=== PATIENT | male | born 1950 | race Caucasian/White ===

== ENCOUNTER → 2018-01-29 | Outpatient (CLI) | payer MEDICARE, BC | END | disposition home or self-care (01) | LOC: PETSC 12:41 | DX: C15.5 Malignant neoplasm of lower third of esophagus (principal); E04.1 Nontoxic single thyroid nodule; J39.8 Other specified diseases of upper respiratory tract; Z98.890 Other specified postprocedural states | CPT/HCPCS: 78815; A9552 ==

== ENCOUNTER 2018-02-11 08:21 | Outpatient (CLI) | payer MEDICARE, BC ==
[2018-02-11 08:39] LABS: ADD MAN DIFF? NO
[2018-02-11 08:42] LABS: BASO % 1 % (0-3); EOS # 0.1 x10^3/uL (0.0-0.7); EOS % 4 % (0-3); HEMATOCRIT 38.5 % (39.0-53.0); HEMOGLOBIN 12.9 g/dL (13.0-17.5); LYMPH # 0.4 x10^3/uL (1.0-4.8); LYMPH % 10 % (24-48); MEAN CORPUSCULAR HEMOGLOBIN 29 pg (25-35); MEAN CORPUSCULAR HGB CONC 34 g/dL (31-37); MEAN CORPUSCULAR VOLUME 87 fL (79-100); MONO # 0.4 x10^3/uL (0.0-1.1); MONO % 10 % (0-9); NEUT # 2.6 x10^3uL (1.8-7.7); NEUT % 75 % (31-73); PLATELET COUNT 196 x10^3/uL (140-400); RED BLOOD COUNT 4.41 x10^6/uL (4.30-5.70); RED CELL DISTRIBUTION WIDTH 14.9 % (11.5-14.5); WHITE BLOOD COUNT 3.5 x10^3/uL (4.0-11.0)
[2018-02-11 09:05] LABS: PROTHROMBIN TIME PATIENT 13.1 SEC (11.7-14.0)
[2018-02-11] MEDS ORDERED: LIDOCAINE 1%/EPI 1:100,000 20 ML VIAL. (09:34)
[2018-02-11] MEDS ORDERED: fentaNYL PF VIAL 100 MCG/2 ML VIAL (09:50)
[2018-02-11] MEDS ORDERED: MIDAZOLAM HCL/PF 2 MG/2 ML VIAL. (09:50)
[2018-02-11] MEDS: LIDOCAINE 1%/EPI 1:100,000 20 ML VIAL. IJ (10:00)
[2018-02-11] MEDS: MIDAZOLAM HCL/PF 2 MG/2 ML VIAL. IV (10:00)
[2018-02-11] MEDS: fentaNYL PF VIAL 100 MCG/2 ML VIAL IV (10:00)
== END 2018-02-11 12:00 | disposition home or self-care (01) ==
LOC: INTRAD 08:21
DX: C15.5 Malignant neoplasm of lower third of esophagus (principal); C77.1 Secondary and unspecified malignant neoplasm of intrathoracic lymph nodes; C79.51 Secondary malignant neoplasm of bone; C78.00 Secondary malignant neoplasm of unspecified lung; E04.1 Nontoxic single thyroid nodule; E11.40 Type 2 diabetes mellitus with diabetic neuropathy, unspecified; G62.9 Polyneuropathy, unspecified; E78.00 Pure hypercholesterolemia, unspecified; I48.91 Unspecified atrial fibrillation; K21.9 Gastro-esophageal reflux disease without esophagitis; Z98.890 Other specified postprocedural states; Z79.82 Long term (current) use of aspirin; Z79.899 Other long term (current) drug therapy; Z79.84 Long term (current) use of oral hypoglycemic drugs; Z92.21 Personal history of antineoplastic chemotherapy; Z92.3 Personal history of irradiation
CPT/HCPCS: 36415; 36561; 76937; 77001; 85025; 85610; 99152; 99153; C1751; C1769; C1892; J0690; J2250; J3010; J3490

== ENCOUNTER → 2018-04-09 | Outpatient (CLI) | payer MEDICARE, BC ==
[2018-02-11 11:47] VITALS: BP 108/68
[~2018-04-09] MED LIST: ASCO10002 PO; ASPI81TA50 PO; CHOL10003 PO; CINN500C2 PO; HYDR-971 PO; METF10007 PO; MULT-404 PO; OMEG1CAP38 PO; PANT20TA2 PO; PRAV20TA2 PO; UBID200C PO; [UNRECOGNIZED DRUG - OTHER] PO
--- NOTE | 2018-04-09 11:38 | RAD ---
FDG tumor localization scan, PET/CT, 04/09/2018: History: Esophageal cancer with metastases, follow-up Imaging was performed following IV injection of 14.8 mCi of 18 F-FDG. The noncontrast CT component was performed for attenuation correction and anatomic localization purposes rather than for primary diagnosis. The patient's blood glucose level at the time of injection was 108 MG/DL. Comparison is made to a study from 01/29/2018. Numerous hypermetabolic foci seen in the mediastinum and bre on the previous study have largely resolved. The CT component demonstrates interval decrease in size of mediastinal lymph nodes, best seen in the right paratracheal region where a 22 mm node seen on the previous study now measures 9 mm. There is only a single tiny residual focus of mildly increased FDG uptake in the subcarinal region with a maximum SUV of 3.1. Bilateral pulmonary masses and patchy infiltrates seen on the previous study have also regressed in size and the degree of FDG uptake. The previously seen lung lesions were markedly hypermetabolic. There is a currently a residual 3.3 cm hypermetabolic focus in the left lung base posteriorly which demonstrates a maximum SUV of 3.7. This process has decreased in size and intensity. Its maximum SUV on the previous study was 7.9. There is only minimal residual low level FDG uptake related to several other residual right lung opacities. These opacities have decreased in size. There are new foci of increased FDG uptake along the margins of the left side of the mandible as well as in the adjacent musculature. There are streak artifacts in this region related to dental fillings. The pattern raises the possibility of an inflammatory or infectious process. Normal GI tract and urinary tract activity is present in the abdomen and pelvis. No hypermetabolic abdominal process is seen. Markedly increased activity seen within the left side of the sacrum and left iliac bone along the posterior rim of the left acetabulum on the previous study have abated. There was also increased activity within the right pedicle and transverse process at L5 which has resolved. Incidental CT findings include the presence of a unchanged right thyroid mass. Changes of a previous esophageal resection with elevation of the stomach into the chest are again noted. There is mild pleural thickening and trace pleural fluid posteriorly in the lower chest, more so on the left. There is moderate nonspecific prostatic enlargement. IMPRESSION: 1. Nearly complete resolution of the hypermetabolic mediastinal and hilar adenopathy evident on 01/29/2018, suggesting a favorable response to therapy. 2. Bilateral pulmonary lesions have also regressed with decrease in the degree of FDG uptake. This probably represented metastatic disease, although an inflammatory or infectious component cannot be excluded. 3. Presumed bony metastases in the pelvis, sacrum and L5 have also regressed. 4. New hypermetabolic foci along the margins of the left side of the mandible raising possibility of an inflammatory process, possibly of odontogenic origin. Clinical correlation is suggested.
== END | disposition home or self-care (01) ==
LOC: PETSC 08:24
PROVIDERS: ATTEND Internal Medicine Hematology & Oncology
DX: C15.5 Malignant neoplasm of lower third of esophagus (principal); J98.4 Other disorders of lung; E11.9 Type 2 diabetes mellitus without complications; E78.00 Pure hypercholesterolemia, unspecified; K21.9 Gastro-esophageal reflux disease without esophagitis; Z79.899 Other long term (current) drug therapy; Z92.3 Personal history of irradiation; Z92.21 Personal history of antineoplastic chemotherapy
CPT/HCPCS: 78815; A9552

== ENCOUNTER 2018-05-13 11:21 | Inpatient (IN) | payer MEDICARE, BC ==
[~2018-05-13] VITALS: Ht 167.6 cm; Wt 67.2 kg
[2018-05-13] VITALS (9 sets, daily range): BP systolic 73–101; BP diastolic 57–69
[2018-05-13] MEDS ORDERED: dilTIAZem IV PUSH 25 MG/5 ML VIAL IVP ONE (11:45)
[2018-05-13] MEDS ORDERED: dilTIAZem INJ 125 MG in IV DEXTROSE 5% 100ML 100 ML IV ONE (11:45)
--- NOTE | 2018-05-13 11:46 | PHYS DOC ---
Adult General Chief Complaint Chief Complaint: tachycardia, A. fib HPI HPI 67-year-old male with history of A. fib presenting the emergency department today with tachycardia after being seen in clinic and being transferred by EMS for significant tachycardia A. fib with RVR. Patient is otherwise denying chest pain or shortness of breath. He feels generally mildly weak. He currently is undergoing chemotherapy for lung cancer and this is why he was in clinic today as to receive his chemotherapy at [facility]. He denies any pain. Past medical history: Lung cancer currently undergoing chemotherapy, hyperlipidemia, diabetes mellitus Surgical history: Straight knee replacement surgery, history of skin grafting, history of esophageal reconstruction surgery and partial esophagectomy Social history:Denies smoking, denies IV drug use or alcohol use. No known drug allergies Review of systems is negative for chest pain abdominal pain nausea vomiting. Reports feeling mildly clammy earlier but feels better now. All other review of systems is negative unless otherwise noted in history of present illness. ED course: 67-year-old male presenting the emergency department today with A. fib with RVR. Diltiazem ordered and given here in the emergency room. She shows anemia. Chemistry panel unremarkable. Troponin negative. Chest x-ray shows effusion with congestive changes likely secondary to his A. fib with RVR. We will admit the patient to the cardiovascular care unit consult cardiology and admitted the patient to Dr. Hardin for further evaluation treatment and care. Review of Systems Review of Systems SEE ABOVE. Current Medications Current Medications Current Medications Medications (Trade) Dose Ordered Sig/Darryl Start Time Stop Time Status Last Admin Dose Admin Digoxin (Lanoxin) 500 mcg 1X ONCE 05/13/18 14:45 05/13/18 14:46 DC 05/13/18 14:27 500 MCG Diltiazem HCl (Cardizem) 15 mg 1X ONCE 05/13/18 11:45 05/13/18 11:46 DC 05/13/18 12:02 15 MG Diltiazem HCl 125 mg/Dextrose 125 ml @ 5 mls/hr 1X ONCE 05/13/18 11:45 05/14/18 12:44 05/13/18 12:06 5 MLS/HR Morphine Sulfate (Morphine Sulfate) 2 mg PRN Q2HR PRN 05/13/18 12:45 05/14/18 12:44 Ondansetron HCl (Zofran) 4 mg PRN Q8HRS PRN 05/13/18 12:45 05/14/18 12:44 Sodium Chloride 1,000 ml @ 75 mls/hr [id number] 05/13/18 12:32 05/13/18 16:31 DC Allergies Allergies Allergies Coded Allergies Type Severity Reaction Last Updated Verified No Known Drug Allergies 02/11/18 No Physical Exam Physical Exam SEE ABOVE Constitutional: Well developed, well nourished, no acute distress, non-toxic appearance. [] HENT: Normocephalic, atraumatic, bilateral external ears normal, oropharynx moist, no oral exudates, nose normal. Eyes: PERRLA, EOMI, conjunctiva normal, no discharge. [] Neck: Normal range of motion, no tenderness, supple, no stridor. [] Cardiovascular:tachy hr with irregular rhythm Lungs & Thorax: Bilateral breath sounds clear to auscultation Abdomen: Bowel sounds normal, soft, no tenderness, no masses, no pulsatile masses. [] Skin: Warm, dry, no erythema, no rash. Back: No tenderness, no CVA tenderness. [] Extremities: No tenderness, no cyanosis, no clubbing, ROM intact, no edema. Neurologic: Alert and oriented X 3, normal motor function, normal sensory function, no focal deficits noted. [] Psychologic: Affect normal, judgement normal, mood normal. Current Patient Data Vital Signs Vital Signs Date Time Temp Pulse Resp B/P (MAP) Pulse Ox O2 Delivery O2 Flow Rate FiO2 05/13/18 14:30 144 11 99/53 (68) 97 Room Air 05/13/18 11:21 97.9 97.9 Lab Values Laboratory Tests Test 05/13/18 11:45 White Blood Count 4.1 x10^3/uL (4.0-11.0) Red Blood Count 3.22 x10^6/uL (4.30-5.70) L Hemoglobin 10.9 g/dL (13.0-17.5) L Hematocrit 31.9 % (39.0-53.0) L Mean Corpuscular Volume 99 fL (79-100) Mean Corpuscular Hemoglobin 34 pg (25-35) Mean Corpuscular Hemoglobin Concent 34 g/dL (31-37) Red Cell Distribution Width 20.7 % (11.5-14.5) H Platelet Count 196 x10^3/uL (140-400) Neutrophils (%) (Auto) 67 % (31-73) Lymphocytes (%) (Auto) 7 % (24-48) L Monocytes (%) (Auto) 21 % (0-9) H Eosinophils (%) (Auto) 4 % (0-3) H Basophils (%) (Auto) 1 % (0-3) Neutrophils # (Auto) 2.8 x10^3uL (1.8-7.7) Lymphocytes # (Auto) 0.3 x10^3/uL (1.0-4.8) L Monocytes # (Auto) 0.9 x10^3/uL (0.0-1.1) Eosinophils # (Auto) 0.2 x10^3/uL (0.0-0.7) Basophils # (Auto) 0.0 x10^3/uL (0.0-0.2) Segmented Neutrophils % 77 % (35-66) H Band Neutrophils % 1 % (0-9) Lymphocytes % 7 % (24-48) L Monocytes % 12 % (0-10) H Eosinophils % 2 % (0-5) Basophils % 1 % (0-3) Platelet Estimate Adequate (ADEQUATE) Anisocytosis Mod Prothrombin Time 14.2 SEC (11.7-14.0) H Prothrombin Time INR 1.2 (0.8-1.1) H PTT 33 SEC (24-38) Sodium Level 144 mmol/L (136-145) Potassium Level 4.1 mmol/L (3.5-5.1) Chloride Level 107 mmol/L (98-107) Carbon Dioxide Level 25 mmol/L (21-32) Anion Gap 12 (6-14) Blood Urea Nitrogen 10 mg/dL (8-26) Creatinine 0.8 mg/dL (0.7-1.3) Estimated GFR (Cockcroft-Gault) 95.8 Glucose Level 84 mg/dL (70-99) Calcium Level 8.8 mg/dL (8.5-10.1) Total Bilirubin 0.3 mg/dL (0.2-1.0) Direct Bilirubin 0.1 mg/dL (0.0-0.2) Aspartate Amino Transferase (AST) 19 U/L (15-37) Alanine Aminotransferase (ALT) 16 U/L (16-63) Alkaline Phosphatase 103 U/L (46-116) Troponin I Quantitative < 0.017 ng/mL (0.000-0.055) XL-Csy-B-Type Natriuretic Peptide 662 pg/mL (0-124) H Total Protein 6.6 g/dL (6.4-8.2) Albumin 2.9 g/dL (3.4-5.0) L Lipase 72 U/L (73-393) L Thyroid Stimulating Hormone (TSH) 0.987 uIU/mL (0.358-3.74) Laboratory Tests 05/13/18 11:45 Laboratory Tests 05/13/18 11:45 EKG EKG [] Radiology/Procedures Radiology/Procedures [] Course & Med Decision Making Course & Med Decision Making Pertinent Labs and Imaging studies reviewed. (See chart for details) [] Dragon Disclaimer Dragon Disclaimer This electronic medical record was generated, in whole or in part, using a voice recognition dictation system. Departure Departure Impression: Primary Impression: Atrial fibrillation with RVR Disposition: ADMITTED INPATIENT Admitting Physician: Tequila Hardin Condition: STABLE Referrals: HIWOT PTAEL MD (PCP) OLIVER MELCHOR MD May 13, 2018 11:46
--- NOTE | 2018-05-13 12:07 | RAD ---
Examination: Portable chest HISTORY: History of chest pain COMPARISON: None available FINDINGS: Low lung volumes and technique accentuates heart size and pulmonary vascularity. Right-sided Port-A-Cath is identified with the tip projecting in the distal SVC region. Mild elevation of the right hemidiaphragm. There is blunting of the right CP angle could be atelectasis or infiltrate and small right pleural effusion. There is mild prominent appearing bilateral interstitial lung markings could be interstitial infiltrates or mild congestive changes. IMPRESSION: 1. Mild congestive changes or interstitial infiltrates in the bilateral lungs. 2. Right lung base airspace opacities likely atelectasis or infiltrate and small right pleural effusion. Electronically signed by: Álvaro Garcia MD (05/13/2018 12:03 PM) [id number]
[2018-05-13 12:16] LABS: CALCIUM 8.8 mg/dL (8.5-10.1); CREATININE 0.8 mg/dL (0.7-1.3); GFR 95.8; POTASSIUM 4.1 mmol/L (3.5-5.1)
[2018-05-13 12:19] LABS: BASO % 1 % (0-3); EOS # 0.2 x10^3/uL (0.0-0.7); EOS % 4 % (0-3); HEMATOCRIT 31.9 % (39.0-53.0); HEMOGLOBIN 10.9 g/dL (13.0-17.5); LYMPH # 0.3 x10^3/uL (1.0-4.8); LYMPH % 7 % (24-48); MEAN CORPUSCULAR HEMOGLOBIN 34 pg (25-35); MEAN CORPUSCULAR HGB CONC 34 g/dL (31-37); MEAN CORPUSCULAR VOLUME 99 fL (79-100); MONO # 0.9 x10^3/uL (0.0-1.1); MONO % 21 % (0-9); NEUT # 2.8 x10^3uL (1.8-7.7); NEUT % 67 % (31-73); PLATELET COUNT 196 x10^3/uL (140-400); RED BLOOD COUNT 3.22 x10^6/uL (4.30-5.70); RED CELL DISTRIBUTION WIDTH 20.7 % (11.5-14.5); WHITE BLOOD COUNT 4.1 x10^3/uL (4.0-11.0)
[2018-05-13 12:22] LABS: ALBUMIN 2.9 g/dL (3.4-5.0); DIRECT BILIRUBIN 0.1 mg/dL (0.0-0.2); TOTAL BILIRUBIN 0.3 mg/dL (0.2-1.0); TOTAL PROTEIN 6.6 g/dL (6.4-8.2)
[2018-05-13] MEDS ORDERED: IV NORMAL SALINE 1000ML BAG 1,000 ML IV SCH (12:32)
[2018-05-13 12:33] LABS: PROTHROMBIN TIME PATIENT 14.2 SEC (11.7-14.0)
[2018-05-13] MEDS ORDERED: ONDANSETRON PF 4 MG/2 ML VIAL. IV PRN (12:45)
[2018-05-13] MEDS ORDERED: MORPHINE SULFATE 2 MG/ML VIAL. IV PRN (12:45)
--- NOTE | 2018-05-13 13:03 | EKG ---
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
--- NOTE | 2018-05-13 13:34 | PDOC2 ---
MANOLO PARK CHEMIST PHARMACEUTICAL 05/13/18 1334: CARDIAC CONSULT DATE OF CONSULT Date of Consult DATE: 05/13/18 TIME: 13:28 REASON FOR CONSULT Reason for Consult: AFIB with RVR REFERRING PHYSICIAN Referring Physician: Dr. Boggs SOURCE Source: Chart review, Patient HISTORY OF PRESENT ILLNESS HISTORY OF PRESENT ILLNESS This is a 67 yo male who presented secondary to AFIB with RVR. Is presently undergoing treatment for Lung CA. Was initially diagnosed with esophageal CA in December of 2016 and underwent extensive esophageal surgery in May of 2017. Immediately prior to this, underwent cardiac workup including EKG, echo, and stress test. Had brief episode of AFIB post-operatively and reports being discharged on a "pill" for a month. Reports this medication was never refilled. In February of this year, was diagnosed with bone and lung CA for which he is currently receiving chemotherapy for. Additionally underwent radiation for bone CA. Was at [facility] for chemotherapy today when HR was noted to be significantly elevated. Was transferred via EMS for further evaluation and treatment. Patient presently asymptomatic. Did have a period this morning while getting ready that his heart felt like it was beating fast and felt diaphoretic, but this subsided quickly. Denies any dizziness, SOA, VO, orthopnea, or nausea/vomiting. Noted to be in AFIB with RVR upon arrival. Cardizem bolus of 15mg and subsequent gtt was initiated. Was running at 0mg/hr, but had to be decreased to 5mg/hr due to BP in the low 80's. HR presently ranging from 130-160 on Cardizem at 5mg/hr. Patient is asymptomatic. PAST MEDICAL HISTORY Cardiovascular: AFIB, HTN (history; previously on lisinopril. No issues since significant wt loss), Hyperlipidemia Pulmonary: Other (lung CA) CENTRAL NERVOUS SYSTEM: Periperal neuropathy GI: GERD, Other (esophageal CA) Heme/Onc: Cancer (esophageal, lung, bone) Hepatobiliary: No pertinent hx Psych: No pertinent hx Musculoskeletal: low back pain (from CA) Rheumatologic: No pertinent hx Infectious disease: No pertinent hx ENT: No pertinent hx Renal/: No pertinent hx Endocrine: Diabetes Dermatology: No pertinent hx PAST SURGICAL HISTORY Past Surgical History: Tonsillectomy, Other (right knee surgery, skin grafts seconday to roldan, partial esophagectomy and reconstruction surgery, thyroid nodule removal) FAMILY HISTORY Family History: Diabetes, Heart Disease SOCIAL HISTORY Smoke: No ALCOHOL: occassional Drugs: None Lives: with Family CURRENT MEDICATIONS CURRENT MEDICATIONS Current Medications Medications (Trade) Dose Ordered Sig/Darryl Route PRN Reason Start Time Stop Time Status Last Admin Dose Admin Diltiazem HCl (Cardizem) 15 mg 1X ONCE IVP 05/13/18 11:45 05/13/18 11:46 DC 05/13/18 12:02 Diltiazem HCl 125 mg/Dextrose 125 ml @ 5 mls/hr 1X ONCE IV 05/13/18 11:45 05/14/18 12:44 05/13/18 12:06 ALLERGIES ALLERGIES: Coded Allergies: No Known Drug Allergies (Unverified , 02/11/18) ROS Review of System 14 point ROS conducted with pertinent positives noted above in HPI. PHYSICAL EXAM General: Alert, Oriented X3, Cooperative, No acute distress HEENT: Atraumatic, Mucous membr. moist/pink Lungs: Clear to auscultation, Normal air movement Heart: Normal S1, Normal S2, Other (tele: IRRR; AFIB with RVR- rate 130-60) Abdomen: Soft, No tenderness Extremities: No edema, Normal pulses Skin: No breakdown, No significant lesion Neuro: Normal speech, Sensation intact Psych/Mental Status: Mental status NL, Mood NL MUSCULOSKELETAL: No deformity VITALS VITALS Vital Signs Date Time Temp Pulse Resp B/P (MAP) Pulse Ox O2 Delivery O2 Flow Rate FiO2 05/13/18 12:02 170 111/73 05/13/18 11:21 97.9 18 99 Room Air 97.9 LABS Lab: Laboratory Tests Test 05/13/18 11:45 White Blood Count 4.1 x10^3/uL (4.0-11.0) Red Blood Count 3.22 x10^6/uL (4.30-5.70) Hemoglobin 10.9 g/dL (13.0-17.5) Hematocrit 31.9 % (39.0-53.0) Mean Corpuscular Volume 99 fL (79-100) Mean Corpuscular Hemoglobin 34 pg (25-35) Mean Corpuscular Hemoglobin Concent 34 g/dL (31-37) Red Cell Distribution Width 20.7 % (11.5-14.5) Platelet Count 196 x10^3/uL (140-400) Neutrophils (%) (Auto) 67 % (31-73) Lymphocytes (%) (Auto) 7 % (24-48) Monocytes (%) (Auto) 21 % (0-9) Eosinophils (%) (Auto) 4 % (0-3) Basophils (%) (Auto) 1 % (0-3) Neutrophils # (Auto) 2.8 x10^3uL (1.8-7.7) Lymphocytes # (Auto) 0.3 x10^3/uL (1.0-4.8) Monocytes # (Auto) 0.9 x10^3/uL (0.0-1.1) Eosinophils # (Auto) 0.2 x10^3/uL (0.0-0.7) Basophils # (Auto) 0.0 x10^3/uL (0.0-0.2) Prothrombin Time 14.2 SEC (11.7-14.0) Prothromb Time International Ratio 1.2 (0.8-1.1) Activated Partial Thromboplast Time 33 SEC (24-38) Sodium Level 144 mmol/L (136-145) Potassium Level 4.1 mmol/L (3.5-5.1) Chloride Level 107 mmol/L (98-107) Carbon Dioxide Level 25 mmol/L (21-32) Anion Gap 12 (6-14) Blood Urea Nitrogen 10 mg/dL (8-26) Creatinine 0.8 mg/dL (0.7-1.3) Estimated GFR (Cockcroft-Gault) 95.8 Glucose Level 84 mg/dL (70-99) Calcium Level 8.8 mg/dL (8.5-10.1) Total Bilirubin 0.3 mg/dL (0.2-1.0) Direct Bilirubin 0.1 mg/dL (0.0-0.2) Aspartate Amino Transf (AST/SGOT) 19 U/L (15-37) Alanine Aminotransferase (ALT/SGPT) 16 U/L (16-63) Alkaline Phosphatase 103 U/L (46-116) Troponin I Quantitative < 0.017 ng/mL (0.000-0.055) IA-Ijt-S-Type Natriuretic Peptide 662 pg/mL (0-124) Total Protein 6.6 g/dL (6.4-8.2) Albumin 2.9 g/dL (3.4-5.0) Lipase 72 U/L (73-393) ASSESSMENT/PLAN ASSESSMENT/PLAN 1. PAFIB; with RVR, POA. On Cardizem gtt at 5mg/hr. HR presently 130-160. 2. Hx of hypertension prior to significant wt loss. BP presently marginal on Cardizem gtt 3. Hyperlipidemia; statin 4. Esophageal CA with mets to lung and bone. S/p partial esophagectomy and reconstruction surgery and radiation. Currently undergoing chemotherapy 5. Diabetes Recommendations Give Dig IV x1 now given elevated HR and marginal BP Check echo to assess LV function/valvular integrity Obtain pre-op cardiac workup from [facility]. Start Eliquis for stroke prevention. Monitor Hgb If HR stable, consider CV following 3-4weeks of anticoagulation WESLEY GALAN MD 05/13/18 2929: CARDIAC CONSULT ASSESSMENT/PLAN ASSESSMENT/PLAN Patient seen and examined. Agree with CANDY WRAPPING MACHINE OPERATOR's assessment and plan. Atrial fibrillation rate better controlled but still elevated. Continue Cardizem infusion. Since blood pressure is borderline, we will attempt rate controlled with digoxin intravenous bolus and if this does not work we will start amiodarone. Agree with eliquis for stroke prophylaxis and plan outpatient cardioversion in 3 -4 weeks. Check 2-D echo to assess LV systolic function. Thank you for your consultation. MANOLO PARK APRN May 13, 2018 13:34 WESLEY GALAN MD May 13, 2018 16:49
[2018-05-13 14:20] LABS: % BANDS 1 % (0-9); % BASOS 1 % (0-3); % EOS 2 % (0-5); % LYMPHS 7 % (24-48); % MONOS 12 % (0-10); % SEGS 77 % (35-66)
[2018-05-13 14:23] LABS: ANISOCYTOSIS MOD; PLT ESTIMATE ADEQUATE (ADEQUATE)
[2018-05-13] MEDS ORDERED: DIGOXIN IV 500 MCG/2 ML AMPUL. IV ONE (14:45)
[2018-05-13] MEDS: APIXABAN 5 MG TABLET. PO SCH ×2 (15:42→21:19)
[2018-05-13] MEDS ORDERED: ONDA8TAB12 PO (18:28)
[2018-05-13] MEDS ORDERED: OXYC20TA34 PO (18:28)
[2018-05-13] MEDS ORDERED: TEMA15CA6 PO (18:28)
[2018-05-13] MEDS ORDERED: DEXTROSE 50% 25 GM / 50ML DISP.SYRIN. IV PRN (20:00)
[2018-05-13] MEDS ORDERED: 0.9 % SODIUM CHLORIDE 10 ML DISP.SYRIN. IV PRN (20:15)
[2018-05-13] MEDS ORDERED: LACTULOSE 20 GM/30 ML SOLUTION. PO PRN (20:15)
[2018-05-13] MEDS ORDERED: ONDANSETRON ODT 4 MG TAB.RAPDIS. PO PRN (20:15)
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
[2018-05-13] MEDS: oxyCODONE ER 10 MG TAB.ER.12H PO SCH (21:19)
[2018-05-13] MEDS: ATORVASTATIN CALCIUM 10 MG TABLET. PO SCH (21:20)
[2018-05-13] MEDS: SENNOSIDES/DOCUSATE 8.6/50MG TABLET. PO SCH (21:20)
[2018-05-13] MEDS: TEMAZEPAM 15 MG CAPSULE PO SCH (21:20)
[2018-05-13] MEDS: IV RINGERS,LACTATED 1000ML 1,000 ML IV SCH (21:20)
[2018-05-14] VITALS (14 sets, daily range): BP systolic 85–133; BP diastolic 41–80
[2018-05-14 05:55] LABS: CHOLESTEROL/HDL RATIO 3.4
[2018-05-14] MEDS: IV RINGERS,LACTATED 1000ML 1,000 ML IV SCH (06:08)
--- NOTE | 2018-05-14 07:26 | PDOC ---
PROGRESS NOTES Chief Complaint Chief Complaint Atrial fibrillation with RVR Hypotension Esophageal cancer Bone pain DM2 History of Present Illness History of Present Illness Mr Chu is a 67 yo male w/ PMHx DM2, HTN, Esophageal cancer with mets who p/ w rapid heart rate in his oncologist's office at 170bpm, sent to the ED. Found in AFIB with RVR. Was initially diagnosed with esophageal CA in December of 2016 s/p surgery in May of 2017 now with mets to lungs and bone as of february 2018. Prior to treatment he underwent cardiac workup including EKG, echo, and stress test. Had brief episode of AFIB post-operatively and reports being discharged on a "pill" for a month, he thinks it was xarelto. Reports this medication was never refilled. Patient presently asymptomatic. Did have a period this morning while getting ready that his heart felt like it was beating fast and felt diaphoretic, but this subsided quickly at 930. He has noted this same "clammy" sensation a few times prior as well. Denies any dizziness, SOA, VO, orthopnea, or nausea/ vomiting. Noted to be in AFIB with RVR upon arrival. Cardizem bolus of 15mg and subsequent gtt was initiated. Was running at 10mg/hr, but had to be decreased to 5mg/hr due to BP in the low 80's. HR presently ranging from 130-160 on Cardizem at 5mg/hr. He is feeling well, but was triaged to ICU for his hypotension. On further ROS he has no GI or complaints but does c/o bone pain from bony mets on extended release oxycodone for this. Overnight cardizem GTT to 2.5mg/hr and converted to sinus rhythm. He c/o right knee pain and some swelling today. A/P: Atrial fibrillation with RVR - rate controlled, started eliquis. Switch to 120mg cardizem today oral and stop drip after an hour Right knee pain and swelling - will get imaging, may have ortho see. Hypotension - secondary to diltiazem. triaged to ICU. Echo now that rate is better controlled Esophageal cancer - under treatment for mets. S/p esophagectomy Bone pain - secondary to mets, will cont home pain medications DM2 - will hold metformin, changed to sliding scale Diet - ADA PPX - eliquis Full code ICU/CVICU for hypotension with afib Vitals Vitals Vital Signs Date Time Temp Pulse Resp B/P (MAP) Pulse Ox O2 Delivery O2 Flow Rate FiO2 05/14/18 06:14 69 91/54 (66) 05/14/18 02:50 97.9 20 96 Room Air 97.9 Physical Exam General: Alert, Oriented X3, Cooperative, No acute distress Heart: Normal S1, Normal S2, Other (tele: IRRR; AFIB with RVR- rate 130-60) Abdomen: Normal bowel sounds, Soft, No tenderness, No hepatosplenomegaly, No masses Extremities: No clubbing, No cyanosis, No edema, Normal pulses, No tenderness/ swelling Skin: No rashes, No breakdown, No significant lesion Labs LABS Laboratory Tests Test 05/13/18 11:45 05/14/18 04:30 White Blood Count 4.1 x10^3/uL (4.0-11.0) Red Blood Count 3.22 x10^6/uL (4.30-5.70) Hemoglobin 10.9 g/dL (13.0-17.5) Hematocrit 31.9 % (39.0-53.0) Mean Corpuscular Volume 99 fL (79-100) Mean Corpuscular Hemoglobin 34 pg (25-35) Mean Corpuscular Hemoglobin Concent 34 g/dL (31-37) Red Cell Distribution Width 20.7 % (11.5-14.5) Platelet Count 196 x10^3/uL (140-400) Neutrophils (%) (Auto) 67 % (31-73) Lymphocytes (%) (Auto) 7 % (24-48) Monocytes (%) (Auto) 21 % (0-9) Eosinophils (%) (Auto) 4 % (0-3) Basophils (%) (Auto) 1 % (0-3) Neutrophils # (Auto) 2.8 x10^3uL (1.8-7.7) Lymphocytes # (Auto) 0.3 x10^3/uL (1.0-4.8) Monocytes # (Auto) 0.9 x10^3/uL (0.0-1.1) Eosinophils # (Auto) 0.2 x10^3/uL (0.0-0.7) Basophils # (Auto) 0.0 x10^3/uL (0.0-0.2) Segmented Neutrophils % 77 % (35-66) Band Neutrophils % 1 % (0-9) Lymphocytes % 7 % (24-48) Monocytes % 12 % (0-10) Eosinophils % 2 % (0-5) Basophils % 1 % (0-3) Platelet Estimate Adequate (ADEQUATE) Anisocytosis Mod Prothrombin Time 14.2 SEC (11.7-14.0) Prothromb Time International Ratio 1.2 (0.8-1.1) Activated Partial Thromboplast Time 33 SEC (24-38) Sodium Level 144 mmol/L (136-145) Potassium Level 4.1 mmol/L (3.5-5.1) Chloride Level 107 mmol/L (98-107) Carbon Dioxide Level 25 mmol/L (21-32) Anion Gap 12 (6-14) Blood Urea Nitrogen 10 mg/dL (8-26) Creatinine 0.8 mg/dL (0.7-1.3) Estimated GFR (Cockcroft-Gault) 95.8 Glucose Level 84 mg/dL (70-99) Calcium Level 8.8 mg/dL (8.5-10.1) Total Bilirubin 0.3 mg/dL (0.2-1.0) Direct Bilirubin 0.1 mg/dL (0.0-0.2) Aspartate Amino Transf (AST/SGOT) 19 U/L (15-37) Alanine Aminotransferase (ALT/SGPT) 16 U/L (16-63) Alkaline Phosphatase 103 U/L (46-116) Troponin I Quantitative < 0.017 ng/mL (0.000-0.055) CL-Ihc-N-Type Natriuretic Peptide 662 pg/mL (0-124) Total Protein 6.6 g/dL (6.4-8.2) Albumin 2.9 g/dL (3.4-5.0) Lipase 72 U/L (73-393) Thyroid Stimulating Hormone (TSH) 0.987 uIU/mL (0.358-3.74) Triglycerides Level 83 mg/dL (0-150) Cholesterol Level 113 mg/dL (0-200) LDL Cholesterol, Calculated 63 mg/dL (0-100) VLDL Cholesterol, Calculated 17 mg/dL (0-40) Non-HDL Cholesterol Calculated 80 mg/dL (0-129) HDL Cholesterol 33 mg/dL (40-60) Cholesterol/HDL Ratio 3.4 Assessment and Plan Assessmemt and Plan Problems Medical Problems: (1) Atrial fibrillation with RVR Status: Acute Comment Review of Relevant I have reviewed the following items corry (where applicable) has been applied. Labs Laboratory Tests Test 05/13/18 11:45 05/14/18 04:30 White Blood Count 4.1 x10^3/uL (4.0-11.0) Red Blood Count 3.22 x10^6/uL (4.30-5.70) Hemoglobin 10.9 g/dL (13.0-17.5) Hematocrit 31.9 % (39.0-53.0) Mean Corpuscular Volume 99 fL (79-100) Mean Corpuscular Hemoglobin 34 pg (25-35) Mean Corpuscular Hemoglobin Concent 34 g/dL (31-37) Red Cell Distribution Width 20.7 % (11.5-14.5) Platelet Count 196 x10^3/uL (140-400) Neutrophils (%) (Auto) 67 % (31-73) Lymphocytes (%) (Auto) 7 % (24-48) Monocytes (%) (Auto) 21 % (0-9) Eosinophils (%) (Auto) 4 % (0-3) Basophils (%) (Auto) 1 % (0-3) Neutrophils # (Auto) 2.8 x10^3uL (1.8-7.7) Lymphocytes # (Auto) 0.3 x10^3/uL (1.0-4.8) Monocytes # (Auto) 0.9 x10^3/uL (0.0-1.1) Eosinophils # (Auto) 0.2 x10^3/uL (0.0-0.7) Basophils # (Auto) 0.0 x10^3/uL (0.0-0.2) Segmented Neutrophils % 77 % (35-66) Band Neutrophils % 1 % (0-9) Lymphocytes % 7 % (24-48) Monocytes % 12 % (0-10) Eosinophils % 2 % (0-5) Basophils % 1 % (0-3) Platelet Estimate Adequate (ADEQUATE) Anisocytosis Mod Prothrombin Time 14.2 SEC (11.7-14.0) Prothromb Time International Ratio 1.2 (0.8-1.1) Activated Partial Thromboplast Time 33 SEC (24-38) Sodium Level 144 mmol/L (136-145) Potassium Level 4.1 mmol/L (3.5-5.1) Chloride Level 107 mmol/L (98-107) Carbon Dioxide Level 25 mmol/L (21-32) Anion Gap 12 (6-14) Blood Urea Nitrogen 10 mg/dL (8-26) Creatinine 0.8 mg/dL (0.7-1.3) Estimated GFR (Cockcroft-Gault) 95.8 Glucose Level 84 mg/dL (70-99) Calcium Level 8.8 mg/dL (8.5-10.1) Total Bilirubin 0.3 mg/dL (0.2-1.0) Direct Bilirubin 0.1 mg/dL (0.0-0.2) Aspartate Amino Transf (AST/SGOT) 19 U/L (15-37) Alanine Aminotransferase (ALT/SGPT) 16 U/L (16-63) Alkaline Phosphatase 103 U/L (46-116) Troponin I Quantitative < 0.017 ng/mL (0.000-0.055) QX-Jeh-U-Type Natriuretic Peptide 662 pg/mL (0-124) Total Protein 6.6 g/dL (6.4-8.2) Albumin 2.9 g/dL (3.4-5.0) Lipase 72 U/L (73-393) Thyroid Stimulating Hormone (TSH) 0.987 uIU/mL (0.358-3.74) Triglycerides Level 83 mg/dL (0-150) Cholesterol Level 113 mg/dL (0-200) LDL Cholesterol, Calculated 63 mg/dL (0-100) VLDL Cholesterol, Calculated 17 mg/dL (0-40) Non-HDL Cholesterol Calculated 80 mg/dL (0-129) HDL Cholesterol 33 mg/dL (40-60) Cholesterol/HDL Ratio 3.4 Laboratory Tests Test 05/13/18 11:45 05/14/18 04:30 White Blood Count 4.1 x10^3/uL (4.0-11.0) Red Blood Count 3.22 x10^6/uL (4.30-5.70) Hemoglobin 10.9 g/dL (13.0-17.5) Hematocrit 31.9 % (39.0-53.0) Mean Corpuscular Volume 99 fL (79-100) Mean Corpuscular Hemoglobin 34 pg (25-35) Mean Corpuscular Hemoglobin Concent 34 g/dL (31-37) Red Cell Distribution Width 20.7 % (11.5-14.5) Platelet Count 196 x10^3/uL (140-400) Neutrophils (%) (Auto) 67 % (31-73) Lymphocytes (%) (Auto) 7 % (24-48) Monocytes (%) (Auto) 21 % (0-9) Eosinophils (%) (Auto) 4 % (0-3) Basophils (%) (Auto) 1 % (0-3) Neutrophils # (Auto) 2.8 x10^3uL (1.8-7.7) Lymphocytes # (Auto) 0.3 x10^3/uL (1.0-4.8) Monocytes # (Auto) 0.9 x10^3/uL (0.0-1.1) Eosinophils # (Auto) 0.2 x10^3/uL (0.0-0.7) Basophils # (Auto) 0.0 x10^3/uL (0.0-0.2) Segmented Neutrophils % 77 % (35-66) Band Neutrophils % 1 % (0-9) Lymphocytes % 7 % (24-48) Monocytes % 12 % (0-10) Eosinophils % 2 % (0-5) Basophils % 1 % (0-3) Platelet Estimate Adequate (ADEQUATE) Anisocytosis Mod Prothrombin Time 14.2 SEC (11.7-14.0) Prothromb Time International Ratio 1.2 (0.8-1.1) Activated Partial Thromboplast Time 33 SEC (24-38) Sodium Level 144 mmol/L (136-145) Potassium Level 4.1 mmol/L (3.5-5.1) Chloride Level 107 mmol/L (98-107) Carbon Dioxide Level 25 mmol/L (21-32) Anion Gap 12 (6-14) Blood Urea Nitrogen 10 mg/dL (8-26) Creatinine 0.8 mg/dL (0.7-1.3) Estimated GFR (Cockcroft-Gault) 95.8 Glucose Level 84 mg/dL (70-99) Calcium Level 8.8 mg/dL (8.5-10.1) Total Bilirubin 0.3 mg/dL (0.2-1.0) Direct Bilirubin 0.1 mg/dL (0.0-0.2) Aspartate Amino Transf (AST/SGOT) 19 U/L (15-37) Alanine Aminotransferase (ALT/SGPT) 16 U/L (16-63) Alkaline Phosphatase 103 U/L (46-116) Troponin I Quantitative < 0.017 ng/mL (0.000-0.055) QJ-Wna-M-Type Natriuretic Peptide 662 pg/mL (0-124) Total Protein 6.6 g/dL (6.4-8.2) Albumin 2.9 g/dL (3.4-5.0) Lipase 72 U/L (73-393) Thyroid Stimulating Hormone (TSH) 0.987 uIU/mL (0.358-3.74) Triglycerides Level 83 mg/dL (0-150) Cholesterol Level 113 mg/dL (0-200) LDL Cholesterol, Calculated 63 mg/dL (0-100) VLDL Cholesterol, Calculated 17 mg/dL (0-40) Non-HDL Cholesterol Calculated 80 mg/dL (0-129) HDL Cholesterol 33 mg/dL (40-60) Cholesterol/HDL Ratio 3.4 Medications Current Medications Diltiazem HCl (Cardizem) 15 mg 1X ONCE IVP Last administered on 05/13/18at 12: 02; Start 05/13/18 at 11:45; Stop 05/13/18 at 11:46; Status DC Diltiazem HCl 125 mg/Dextrose 125 ml @ 5 mls/hr 1X ONCE IV Last administered on 05/13/18at 12:06; Start 05/13/18 at 11:45; Stop 05/14/18 at 12:44 Ondansetron HCl (Zofran) 4 mg PRN Q8HRS PRN IV NAUSEA/VOMITING; Start at 12:45; Stop 05/14/18 at 12:44 Morphine Sulfate (Morphine Sulfate) 2 mg PRN Q2HR PRN IV PAIN SEVERE; Start at 12:45; Stop 05/14/18 at 12:44 Sodium Chloride 1,000 ml @ 75 mls/hr [id number] IV Last administered on at 12:32; Start 05/13/18 at 12:32; Stop 05/13/18 at 16:31; Status DC Digoxin (Lanoxin) 500 mcg 1X ONCE IV Last administered on 05/13/18at 14:27; Start 05/13/18 at 14:45; Stop 05/13/18 at 14:46; Status DC Apixaban (Eliquis) 5 mg BID PO Last administered on 05/13/18at 21:19; Start at 15:30 Info (Anti-Coagulation Monitoring By Pharmacy) 1 each PRN DAILY PRN MC SEE COMMENTS; Start 05/13/18 at 18:15 Insulin Human Lispro (HumaLOG) 0-7 UNITS TIDWMEALS SQ ; Start 05/14/18 at 08:00 Dextrose (Dextrose 50%-Water Syringe) 12.5 gm PRN Q15MIN PRN IV SEE COMMENTS; Start 05/13/18 at 20:00 Aspirin (Ecotrin) 81 mg DAILY08 PO ; Start 05/14/18 at 08:00 Vitamin D (Vitamin D3) 1,000 unit DAILY PO ; Start 05/14/18 at 09:00 Acetaminophen/ Hydrocodone Bitart (Lortab 5/325) 1 tab PRN Q6HRS PRN PO PAIN; Start 05/13/18 at 20:00 Ascorbic Acid (Vitamin C) 1,000 mg DAILY PO ; Start 05/14/18 at 09:00 Multivitamins (Thera M Plus) 1 tab DAILY PO ; Start 05/14/18 at 09:00 Fish Oil (Fish Oil) 1,000 mg DAILY PO ; Start 05/14/18 at 09:00 Ondansetron HCl (Zofran Odt) 8 mg PRN Q8HRS PRN PO NAUSEA/VOMITING; Start at 20:15 Oxycodone HCl (OxyCONTIN) 20 mg Q12HR PO Last administered on 05/13/18at 21:19 ; Start 05/13/18 at 21:00 Pantoprazole Sodium (Protonix) 40 mg DAILYAC PO ; Start 05/14/18 at 07:30 Atorvastatin Calcium (Lipitor) 5 mg QHS PO Last administered on 05/13/18at 21: 20; Start 05/13/18 at 21:00 Temazepam (Restoril) 15 mg QHS PO Last administered on 05/13/18at 21:20; Start 05/13/18 at 21:00 Sodium Chloride (Normal Saline Flush) 3 ml PRN DAILY PRN IV AFTER MEDS AND BLOOD DRAWS; Start 05/13/18 at 20:15 Ringer's Solution 1,000 ml @ 100 mls/hr Q10H IV Last administered on at 21:20; Start 05/13/18 at 20:08 Senna/Docusate Sodium (Senna Plus) 1 tab BID PO Last administered on at 21:20; Start 05/13/18 at 21:00 Lactulose (Lactulose) 20 gm PRN Q12HR PRN PO CONSTIPATION 1ST CHOICE; Start at 20:15 Active Scripts Active Reported Restoril (Temazepam) 15 Mg Capsule 1 Cap PO QHS Oxycontin (Oxycodone HCl) 20 Mg Tab.er.12h 20 Mg PO BID Zofran Odt (Ondansetron) 8 Mg Tab.rapdis 1 Tab PO Q8HRS [mushroom extract] 500 Mg PO HS Men's Multi-Vitamin (Multivitamin) 1 Each Tablet 1 Each PO DAILY Cinnamon (Cinnamon Bark) 500 Mg Capsule 500 Mg PO 2 PO DAILY [place] 3 Fish Oil Softgel ([place]-3 Fatty Acids/Fish Oil) 1 Each Capsule. 1 Each PO DAILY Coenzyme Q10 (Ubidecarenone) 200 Mg Capsule 200 Mg PO Vitamin D3 (Cholecalciferol (Vitamin D3)) 1,000 Unit Tablet 1,000 Unit PO DAILY Vitamin C (Ascorbic Acid) 1,000 Mg Tablet 1,000 Mg PO DAILY Aspir-Low (Aspirin) 81 Mg Tablet. 81 Mg PO DAILY [place] 5-325 Tablet (Acetaminophen/Hydrocodone Bitart) 1 Each Tablet 1 Tab PO PRN Q6HRS PRN Pravastatin Sodium 20 Mg Tablet 20 Mg PO 1/2TAB DAILY Protonix (Pantoprazole Sodium) 20 Mg Tablet. 20 Mg PO DAILY Metformin Hcl 1,000 Mg Tablet 1,000 Mg PO BIDWMEALS Vitals/I & O Vital Sign - Last 24 Hours 05/13/18 05/13/18 05/13/18 05/13/18 11:21 11:30 12:00 12:02 Temp 97.9 97.9 Pulse 150 156 162 170 Resp 18 B/P (MAP) 128/83 (98) 128/83 (98) 111/73 (86) 111/73 Pulse Ox 99 99 98 O2 Delivery Room Air Room Air Room Air 05/13/18 05/13/18 05/13/18 05/13/18 12:30 13:00 13:30 14:00 Pulse 146 156 150 146 B/P (MAP) 102/71 (81) 94/75 (81) 92/62 (72) 113/64 (80) Pulse Ox 98 98 98 98 O2 Delivery Room Air Room Air Room Air Room Air 05/13/18 05/13/18 05/13/18 05/13/18 14:27 14:30 15:00 15:30 Pulse 157 144 138 132 Resp 11 15 15 B/P (MAP) 113/64 99/53 (68) 92/56 (68) 97/63 (74) Pulse Ox 97 97 97 O2 Delivery Room Air Room Air Room Air 05/13/18 05/13/18 05/13/18 05/13/18 16:00 16:25 16:45 17:00 Pulse 124 119 110 Resp 15 15 12 B/P (MAP) 84/61 (69) 89/61 (70) 85/61 (69) Pulse Ox 98 98 99 O2 Delivery Room Air Room Air Room Air Room Air 05/13/18 05/13/18 05/13/18 05/13/18 17:00 17:15 17:30 18:00 Temp 98.8 98.8 Pulse 108 104 102 110 Resp 14 15 13 12 B/P (MAP) 99/63 (75) 91/61 (71) 91/65 (74) 86/64 (71) Pulse Ox 98 99 97 98 O2 Delivery Room Air Room Air Room Air Room Air 05/13/18 05/13/18 05/13/18 05/13/18 20:00 21:15 21:19 21:50 Temp 98.1 98.1 Pulse 100 72 Resp 16 16 12 B/P (MAP) 73/61 (65) 100/63 (75) Pulse Ox 100 100 100 O2 Delivery Room Air Room Air Room Air 05/13/18 05/13/18 05/14/18 05/14/18 22:06 23:09 00:14 01:00 Temp 99.3 99.3 Pulse 76 79 79 68 Resp 18 18 20 B/P (MAP) 98/57 (71) 101/69 (80) 85/55 (65) 95/50 (65) Pulse Ox 96 96 O2 Delivery Room Air Room Air Room Air 05/14/18 05/14/18 05/14/18 05/14/18 01:19 02:00 02:50 03:15 Temp 97.9 97.9 Pulse 71 74 67 Resp 18 20 20 B/P (MAP) 100/62 (75) 92/58 (69) 87/60 (69) Pulse Ox 96 O2 Delivery Room Air Room Air Room Air 05/14/18 05/14/18 05/14/18 04:00 05:08 06:14 Pulse 73 77 69 B/P (MAP) 92/41 (58) 99/57 (71) 91/54 (66) Intake and Output 05/13/18 05/13/18 05/14/18 15:00 23:00 07:00 Intake Total 800 ml Output Total 1200 ml 2500 ml Balance -1200 ml -1700 ml BIANCA SOLORZANO MD May 14, 2018 07:26
[2018-05-14] MEDS: INSULIN LISPRO 300 UNITS/3 ML INSULN.PEN. SQ SCH ×3 (07:39→16:48)
[2018-05-14] MEDS: APIXABAN 5 MG TABLET. PO SCH ×2 (08:26→20:24)
[2018-05-14] MEDS: SENNOSIDES/DOCUSATE 8.6/50MG TABLET. PO SCH ×2 (08:27→20:24)
[2018-05-14] MEDS: CHOLECALCIFEROL (VITAMIN D3) 1,000 UNIT TABLET PO SCH (08:27)
[2018-05-14] MEDS: ASPIRIN ENTERIC COATED 81 MG TABLET.DR. PO SCH (08:31)
[2018-05-14] MEDS: MULTIVITAMIN with MINERAL TABLET. PO SCH (08:31)
[2018-05-14] MEDS: ASCORBIC ACID 500 MG TABLET PO SCH (08:32)
[2018-05-14] MEDS: OMEGA-3 FATTY ACIDS/FISH OIL 1,000 MG CAPSULE. PO SCH (08:32)
[2018-05-14] MEDS: PANTOPRAZOLE 40 MG TABLET.DR. PO SCH (08:32)
[2018-05-14] MEDS: oxyCODONE ER 10 MG TAB.ER.12H PO SCH ×2 (08:32→20:24)
--- NOTE | 2018-05-14 10:48 | PDOC ---
CÉSAR ASHBY GARNETT ROOM WORKER 05/14/18 1048: CARDIO Progress Notes Date and Time Date of Service 05/14/2018 Time of Evaluation 1030 Subjective Subjective: No Chest Pain, No shortness of breath, No Palpitations Vitals Vitals Vital Signs Date Time Temp Pulse Resp B/P (MAP) Pulse Ox O2 Delivery O2 Flow Rate FiO2 05/14/18 10:15 90 104/63 05/14/18 08:32 16 Room Air 05/14/18 07:00 98.0 98 98.0 Weight Weight [ ] Input and Output Intake and Output Intake and Output 05/14/18 07:00 Intake Total 800 ml Output Total 3700 ml Balance -2900 ml Intake Oral 800 ml Output Urine Total 3700 ml Laboratory Labs Laboratory Tests Test 05/13/18 11:45 05/14/18 04:30 05/14/18 07:31 White Blood Count 4.1 x10^3/uL (4.0-11.0) Red Blood Count 3.22 x10^6/uL (4.30-5.70) Hemoglobin 10.9 g/dL (13.0-17.5) Hematocrit 31.9 % (39.0-53.0) Mean Corpuscular Volume 99 fL (79-100) Mean Corpuscular Hemoglobin 34 pg (25-35) Mean Corpuscular Hemoglobin Concent 34 g/dL (31-37) Red Cell Distribution Width 20.7 % (11.5-14.5) Platelet Count 196 x10^3/uL (140-400) Neutrophils (%) (Auto) 67 % (31-73) Lymphocytes (%) (Auto) 7 % (24-48) Monocytes (%) (Auto) 21 % (0-9) Eosinophils (%) (Auto) 4 % (0-3) Basophils (%) (Auto) 1 % (0-3) Neutrophils # (Auto) 2.8 x10^3uL (1.8-7.7) Lymphocytes # (Auto) 0.3 x10^3/uL (1.0-4.8) Monocytes # (Auto) 0.9 x10^3/uL (0.0-1.1) Eosinophils # (Auto) 0.2 x10^3/uL (0.0-0.7) Basophils # (Auto) 0.0 x10^3/uL (0.0-0.2) Segmented Neutrophils % 77 % (35-66) Band Neutrophils % 1 % (0-9) Lymphocytes % 7 % (24-48) Monocytes % 12 % (0-10) Eosinophils % 2 % (0-5) Basophils % 1 % (0-3) Platelet Estimate Adequate (ADEQUATE) Anisocytosis Mod Prothrombin Time 14.2 SEC (11.7-14.0) Prothromb Time International Ratio 1.2 (0.8-1.1) Activated Partial Thromboplast Time 33 SEC (24-38) Sodium Level 144 mmol/L (136-145) Potassium Level 4.1 mmol/L (3.5-5.1) Chloride Level 107 mmol/L (98-107) Carbon Dioxide Level 25 mmol/L (21-32) Anion Gap 12 (6-14) Blood Urea Nitrogen 10 mg/dL (8-26) Creatinine 0.8 mg/dL (0.7-1.3) Estimated GFR (Cockcroft-Gault) 95.8 Glucose Level 84 mg/dL (70-99) Calcium Level 8.8 mg/dL (8.5-10.1) Total Bilirubin 0.3 mg/dL (0.2-1.0) Direct Bilirubin 0.1 mg/dL (0.0-0.2) Aspartate Amino Transf (AST/SGOT) 19 U/L (15-37) Alanine Aminotransferase (ALT/SGPT) 16 U/L (16-63) Alkaline Phosphatase 103 U/L (46-116) Troponin I Quantitative < 0.017 ng/mL (0.000-0.055) NB-Nxi-X-Type Natriuretic Peptide 662 pg/mL (0-124) Total Protein 6.6 g/dL (6.4-8.2) Albumin 2.9 g/dL (3.4-5.0) Lipase 72 U/L (73-393) Thyroid Stimulating Hormone (TSH) 0.987 uIU/mL (0.358-3.74) Triglycerides Level 83 mg/dL (0-150) Cholesterol Level 113 mg/dL (0-200) LDL Cholesterol, Calculated 63 mg/dL (0-100) VLDL Cholesterol, Calculated 17 mg/dL (0-40) Non-HDL Cholesterol Calculated 80 mg/dL (0-129) HDL Cholesterol 33 mg/dL (40-60) Cholesterol/HDL Ratio 3.4 Glucose (Fingerstick) 74 mg/dL (70-99) Physical Exam HEENT: Neck Supple W Full Motion Chest: Symmetric LUNGS: Other (basilar crackles) Heart: S1S2, RRR (SR), irregularly irregular Abdomen: Soft N/T Extremities: No Calf Tenderness Neurology: alert, oriented, follow commands Assessment Assessment 1. PAFIB RVR: initially with RVR, converted to SR with cardizem. 2. Bilateral pleural effusion with lung CA with mets to esophagus and bones: left pleural effusion appears to be new. 3. Small pericardial effusion: hemodynamically stable. EF and WM nml. 4. Chronic diastolic CHF: appears compensated 5. Anemia 6. HTN: BP at low end due to 4L of UOP overnight. 7. DM2/HLP 8. Recent partial esophagectomy and reconstruction surgery and radiation: in process of chemo Recommendations 1. CT chest without contrast 2. Push po fluids. cardizem CD 120 mg and check BP trend. Eliquis for stroke prevention 3. Follow up in office in 4 weeks. WESLEY GALAN MD 05/15/18 1039: CARDIO Progress Notes Assessment Assessment Patient seen and examined 05/14/18. Agree with [facility]ER's assessment and plan. Patient back in sinus rhythm. Continue Cardizem and eliquis and follow-up with our office in 1 month CÉSAR ASHBY APRN May 14, 2018 10:48 WESLEY GALAN MD May 15, 2018 10:39
[2018-05-14 12:15] LABS: C-REACTIVE PROTEIN 14.7 mg/L (0-3.3); URIC ACID 4.2 mg/dL (3.5-7.2)
--- NOTE | 2018-05-14 12:27 | RAD ---
Portable right knee, 3 views, 05/14/2018: HISTORY: Knee pain and swelling There is severe narrowing of the knee joint with moderate marginal spurring. There is severe hypertrophic degenerative change at the knee joint. Periarticular calcifications are compatible with loose bodies. No acute fracture or dislocation is identified. Soft tissue fullness in the suprapatellar bursa is compatible with a moderate sized joint effusion. Subcutaneous edema is present anteriorly. IMPRESSION: 1. Severe hypertrophic degenerative change with loose bodies in the knee joint. 2. Moderate sized knee joint effusion. Electronically signed by: Ruiz Damon MD (05/14/2018 12:23 PM) [facility]
--- NOTE | 2018-05-14 12:35 | CARD ---
MR#: [id number] Date of Study: 05/14/2018 Ordering Physician: MANOLO PARK, Referring Physician: BIANCA SOLORZANO, Tech: Brina Washington APPROVED REPORT EXAM: Two-dimensional and M-mode echocardiogram with Doppler and color Doppler. Other Information Quality : GoodHR: 76bpm Rhythm : NSR INDICATION Atrial Fibrillation 2D DIMENSIONS RVDd2.4 (2.9-3.5cm)Left Atrium(2D)2.9 (1.6-4.0cm) IVSd1.0 (0.7-1.1cm)Aortic Root(2D)3.2 (2.0-3.7cm) LVDd4.9 (3.9-5.9cm)LVOT Diameter2.3 (1.8-2.4cm) PWd1.7 (0.7-1.1cm)LVDs4.1 (2.5-4.0cm) FS (%) 17.1 %SV40.9 ml LVEF(%)35.6 (>50%) Aortic Valve AoV Peak Artis.134.1cm/sAoV VTI23.2cm AO Peak GR.7.2mmHgLVOT VTI 20.03cm AO Mean GR.4mmHg Mitral Valve MV E Pmlvckzg73.6cm/sMV DECEL [id number] MV A Nrppoxvb53.6cm/sE/A Ratio1.2 TDI Lateral E' P. V8.98cm/sMedial E' P. V11.45cm/s E/Lateral E'10.1E/Medial E'7.9 Tricuspid Valve TR P. Pizdwwcc218yn/sRAP GTKNHTDL4dpBl TR Peak Gr.[id number] Pulmonary Vein S1 Jwrisoht75.5cm/sS2 Vpwrmrfx51.16cm/s D2 Iqmknnfd98.2cm/s LEFT VENTRICLE The left ventricle is normal size. There is borderline to mild concentric left ventricular hypertroph y. The left ventricular systolic function is normal and the ejection fraction is within normal range. The Ejection Fraction is 55-60%. There is normal LV segmental wall motion. Transmitral Doppler flow pattern is Grade II-pseudonormal filling dynamics. RIGHT VENTRICLE The right ventricle is normal size. There is normal right ventricular wall thickness. The right ventr icular systolic function is normal. ATRIA The left atrium size is normal. The right atrium size is normal. The interatrial septum is intact wit h no evidence for an atrial septal defect or patent foramen ovale as noted on 2-D or Doppler imaging. AORTIC VALVE The aortic valve is normal in structure and function. Doppler and Color Flow revealed trace aortic re gurgitation. There is no significant aortic valvular stenosis. MITRAL VALVE The mitral valve is normal in structure and function. There is no mitral valve stenosis. Doppler and Color-flow revealed trace mitral regurgitation. TRICUSPID VALVE The tricuspid valve is normal in structure and function. Doppler and Color Flow revealed trace tricus pid regurgitation. There is no tricuspid valve stenosis. PULMONIC VALVE Doppler and Color Flow revealed trace pulmonic valvular regurgitation. There is no pulmonic valvular stenosis. GREAT VESSELS The aortic root is normal in size. Normal pulmonary venous flow (Doppler). The IVC is normal in size and collapses >50% with inspiration. PERICARDIAL EFFUSION There is moderate left pleural effusion. There is a small circumferential pericardial effusion. Critical Notification Critical Value: No <Conclusion> The left ventricular systolic function is normal and the ejection fraction is within normal range. Th e Ejection Fraction is 55-60%. Transmitral Doppler flow pattern is Grade II-pseudonormal filling dynamics. There is moderate left pleural effusion. There is a small circumferential pericardial effusion. There is normal LV segmental wall motion. Signed by : Rony Lopez, Electronically Approved : 05/14/2018 12:34:31
[2018-05-14] MEDS: HYDROcodone/APAP 5/325MG 1 TAB TABLET PO PRN (12:55)
[2018-05-14] MEDS ORDERED: MORPHINE SULFATE 4 MG/ML VIAL. IV PRN (14:00)
--- NOTE | 2018-05-14 15:06 | RAD ---
MRI right knee without contrast dated 05/14/2018 12:57 PM Indication: RIGHT KNEE GENERALIZED PAIN X 1 DAY, NO SX HX, NO PRIORS, PT UNALBLE TO REMAIN STILL DUE TO PAIN . .. Comparison: No comparison is available. Technique: Routine multiplanar multisequence imaging performed. . Findings: Moderate tricompartmental hypertrophic change with prominent marginal osteophytes. Thinning and surface irregularity of the articular cartilage throughout. Broad zones of full-thickness cartilage loss over the weightbearing surfaces lateral femoral condyle and lateral tibial plateau. There is also full-thickness cartilage loss at the medial compartment with full-thickness chondral is loss at the upper aspect of the medial and lateral patellar facet and medial and lateral femoral trochlea. Moderate size joint effusion. Multiple intra-articular loose bodies. No significant popliteal cyst. The anterior cruciate ligament is not identified and likely chronically torn. There is increased signal in the substance of the PCL. Medial and lateral collateral complexes are grossly intact. The popliteus tendon is not well visualized and may be chronically torn. Quadriceps and patellar tendon are intact. No abnormality of the medial or lateral retinaculum. Neither meniscus is clearly identified, consistent with chronic degeneration or tear. There is minimal residual meniscal tissue at the posterior horn/body of medial meniscus and the anterior horn of lateral meniscus. IMPRESSION: 1. 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 There is full-thickness cartilage loss in all 3 knee compartments. 2. Poor visualization of the medial and lateral menisci, likely related to prior meniscectomy and/or severe chronic degenerative tearing. 3. Moderate size joint effusion with multiple intra-articular loose bodies. 4. Nonvisualization of the anterior cruciate ligament, likely related to chronic tear. 5. Probable chronic tear of the popliteus tendon Electronically signed by: Zi Delgado MD (05/14/2018 3:03 PM) [id number]
--- NOTE | 2018-05-14 15:48 | RAD ---
CT of the chest without contrast, 05/14/2018: History: Pleural effusion, esophageal cancer Noncontrast scans were obtained as requested and compared to a study from 01/12/2018. There has been previous resection of the esophagus with elevation of the stomach into the chest. There is an unchanged moderate size right thyroid mass. Previously seen mediastinal adenopathy has regressed, as also noted on the recent PET/CT study of 04/09/2018. There is a small pericardial effusion which has increased slightly in size. There are small bilateral pleural effusions, left greater than right, which have increased in size. A right Port-A-Cath extends to the level of the atriocaval junction. Bilateral pulmonary masses and patchy infiltrates have largely regressed since the previous study. For example, a dominant 4.4 x 3.5 cm opacity in the posterior aspect of the left lower lobe seen on the previous study, now measures 3.2 x 2.1 cm. Previously seen infiltrates in the right lower and middle lobes adjacent to the inferior aspect of the oblique fissure have also regressed. There are only minimal hazy groundglass opacities in the right upper lobe which are new. IMPRESSION: 1. Irregular bilateral pulmonary masses and patchy infiltrates have predominantly regressed since 01/12/2018. 2. Mediastinal adenopathy has also regressed. 3. Small bilateral pleural effusions and a small pericardial effusion have increased slightly. 4. A couple of new minimal groundglass opacities in the right upper lobe may represent edema or inflammation. 5. Stable right thyroid mass. PQRS Compliance Statement: One or more of the following individualized dose reduction techniques were utilized for this examination: 1. Automated exposure control 2. Adjustment of the mA and/or kV according to patient size 3. Use of iterative reconstruction technique
[2018-05-14] MEDS: KETOROLAC 15 MG/ML VIAL. IV PRN (16:41)
[2018-05-14] MEDS: ANTI-COAG MONITOR BY PHARMACY. MC PRN (16:50)
--- NOTE | 2018-05-14 17:04 | PDOC ---
Provider Note Provider Note Med Onc 1. Esophageal ca stage 4. Defer chemo due to a.fib see dictation [id number] GAURAV LIU MD May 14, 2018 17:04
[2018-05-14] MEDS: HYDROmorphone 2 MG/ML VIAL IVP PRN ×2 (18:49→23:07)
[2018-05-14] MEDS: ATORVASTATIN CALCIUM 10 MG TABLET. PO SCH (20:24)
[2018-05-14] MEDS: TEMAZEPAM 15 MG CAPSULE PO SCH (20:24)
[2018-05-14] MEDS ORDERED: oxyCODONE ER 10 MG TAB.ER.12H PO ONE (21:00)
[2018-05-15 03:00] VITALS: BP 131/67
[2018-05-15] MEDS: KETOROLAC 15 MG/ML VIAL. IV PRN (04:06)
[2018-05-15] MEDS: HYDROcodone/APAP 5/325MG 1 TAB TABLET PO PRN (04:07)
[2018-05-15 07:00] VITALS: BP 163/112
[2018-05-15 07:01] VITALS: BP 104/65
--- NOTE | 2018-05-15 07:17 | PDOC ---
PROGRESS NOTES Chief Complaint Chief Complaint Atrial fibrillation with RVR Hypotension Esophageal cancer Bone pain DM2 History of Present Illness History of Present Illness Mr Chu is a 67 yo male w/ PMHx DM2, HTN, Esophageal cancer with mets who p/ w rapid heart rate in his oncologist's office at 170bpm, sent to the ED. Found in AFIB with RVR. Was initially diagnosed with esophageal CA in December of 2016 s/p surgery in May of 2017 now with mets to lungs and bone as of february 2018. Prior to treatment he underwent cardiac workup including EKG, echo, and stress test. Had brief episode of AFIB post-operatively and reports being discharged on a "pill" for a month, he thinks it was xarelto. Reports this medication was never refilled. Patient presently asymptomatic. Did have a period this morning while getting ready that his heart felt like it was beating fast and felt diaphoretic, but this subsided quickly at 930. He has noted this same "clammy" sensation a few times prior as well. Denies any dizziness, SOA, VO, orthopnea, or nausea/ vomiting. Noted to be in AFIB with RVR upon arrival. Cardizem bolus of 15mg and subsequent gtt was initiated. Was running at 10mg/hr, but had to be decreased to 5mg/hr due to BP in the low 80's. HR presently ranging from 130-160 on Cardizem at 5mg/hr. He is feeling well, but was triaged to ICU for his hypotension. On further ROS he has no GI or complaints but does c/o bone pain from bony mets on extended release oxycodone for this. Yesterday cardizem converted to oral. BP on the low side. Sinus rhythm. Overnight no events. He c/o right knee pain and some swelling today that are improved after a toradol injection. Uric acid 4, CRP and ESR elevated. MRI reviewed with tricompartmental disease, effusion, and cartilage damage. A/P: Atrial fibrillation with RVR - rate controlled, started eliquis. Switched to 120mg cardizem. BP down. Will need cardiology f/u outpatient now ECHO - The left ventricular systolic function is normal and the ejection fraction is within normal range. The Ejection Fraction is 55-60%. Transmitral Doppler flow pattern is Grade II-pseudonormal filling dynamics. There is moderate left pleural effusion. There is a small circumferential pericardial effusion. There is normal LV segmental wall motion. Right knee pain and swelling - imaging reviewed. Patient would like to consider corticosteroid injection, I have advised Ortho may not do this while on eliquis , could go home with less than 3 days of anti-inflammatories, understands the risks and need for PPI while taking MRI - 1. 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 There is full-thickness cartilage loss in all 3 knee compartments. 2. Poor visualization of the medial and lateral menisci, likely related to prior meniscectomy and/or severe chronic degenerative tearing. 3. Moderate size joint effusion with multiple intra-articular loose bodies. 4. Nonvisualization of the anterior cruciate ligament, likely related to chronic tear. 5. Probable chronic tear of the popliteus tendon Hypotension - secondary to diltiazem. triaged to ICU. Esophageal cancer - under treatment for mets. S/p esophagectomy Bone pain - secondary to mets, will cont home pain medications DM2 - will hold metformin, changed to sliding scale Diet - ADA PPX - eliquis Full code Can d/c home if able to ambulate, knee if improving Vitals Vitals Vital Signs Date Time Temp Pulse Resp B/P (MAP) Pulse Ox O2 Delivery O2 Flow Rate FiO2 05/15/18 05:07 20 Room Air 05/15/18 03:00 98.0 101 131/67 (88) 94 98.0 Physical Exam General: Alert, Oriented X3, Cooperative, No acute distress Heart: Normal S1, Normal S2, Other (tele: IRRR; AFIB with RVR- rate 130-60) Abdomen: Normal bowel sounds, Soft, No tenderness, No hepatosplenomegaly, No masses Extremities: No clubbing, No cyanosis, No edema, Normal pulses, No tenderness/ swelling Skin: No rashes, No breakdown, No significant lesion Labs LABS Laboratory Tests Test 05/14/18 07:31 05/14/18 11:44 05/14/18 11:45 05/14/18 12:31 Glucose (Fingerstick) 74 mg/dL (70-99) 71 mg/dL (70-99) 110 mg/dL (70-99) Erythrocyte Sedimentation Rate 86 (0-15) Uric Acid 4.2 mg/dL (3.5-7.2) C-Reactive Protein, Quantitative 14.7 mg/L (0-3.3) Test 05/14/18 16:44 Glucose (Fingerstick) 122 mg/dL (70-99) Assessment and Plan Assessmemt and Plan Problems Medical Problems: (1) Atrial fibrillation with RVR Status: Acute Comment Review of Relevant I have reviewed the following items corry (where applicable) has been applied. Labs Laboratory Tests Test 05/13/18 11:45 05/14/18 04:30 05/14/18 07:31 05/14/18 11:44 White Blood Count 4.1 x10^3/uL (4.0-11.0) Red Blood Count 3.22 x10^6/uL (4.30-5.70) Hemoglobin 10.9 g/dL (13.0-17.5) Hematocrit 31.9 % (39.0-53.0) Mean Corpuscular Volume 99 fL (79-100) Mean Corpuscular Hemoglobin 34 pg (25-35) Mean Corpuscular Hemoglobin Concent 34 g/dL (31-37) Red Cell Distribution Width 20.7 % (11.5-14.5) Platelet Count 196 x10^3/uL (140-400) Neutrophils (%) (Auto) 67 % (31-73) Lymphocytes (%) (Auto) 7 % (24-48) Monocytes (%) (Auto) 21 % (0-9) Eosinophils (%) (Auto) 4 % (0-3) Basophils (%) (Auto) 1 % (0-3) Neutrophils # (Auto) 2.8 x10^3uL (1.8-7.7) Lymphocytes # (Auto) 0.3 x10^3/uL (1.0-4.8) Monocytes # (Auto) 0.9 x10^3/uL (0.0-1.1) Eosinophils # (Auto) 0.2 x10^3/uL (0.0-0.7) Basophils # (Auto) 0.0 x10^3/uL (0.0-0.2) Segmented Neutrophils % 77 % (35-66) Band Neutrophils % 1 % (0-9) Lymphocytes % 7 % (24-48) Monocytes % 12 % (0-10) Eosinophils % 2 % (0-5) Basophils % 1 % (0-3) Platelet Estimate Adequate (ADEQUATE) Anisocytosis Mod Prothrombin Time 14.2 SEC (11.7-14.0) Prothromb Time International Ratio 1.2 (0.8-1.1) Activated Partial Thromboplast Time 33 SEC (24-38) Sodium Level 144 mmol/L (136-145) Potassium Level 4.1 mmol/L (3.5-5.1) Chloride Level 107 mmol/L (98-107) Carbon Dioxide Level 25 mmol/L (21-32) Anion Gap 12 (6-14) Blood Urea Nitrogen 10 mg/dL (8-26) Creatinine 0.8 mg/dL (0.7-1.3) Estimated GFR (Cockcroft-Gault) 95.8 Glucose Level 84 mg/dL (70-99) Calcium Level 8.8 mg/dL (8.5-10.1) Total Bilirubin 0.3 mg/dL (0.2-1.0) Direct Bilirubin 0.1 mg/dL (0.0-0.2) Aspartate Amino Transf (AST/SGOT) 19 U/L (15-37) Alanine Aminotransferase (ALT/SGPT) 16 U/L (16-63) Alkaline Phosphatase 103 U/L (46-116) Troponin I Quantitative < 0.017 ng/mL (0.000-0.055) KY-Fuj-H-Type Natriuretic Peptide 662 pg/mL (0-124) Total Protein 6.6 g/dL (6.4-8.2) Albumin 2.9 g/dL (3.4-5.0) Lipase 72 U/L (73-393) Thyroid Stimulating Hormone (TSH) 0.987 uIU/mL (0.358-3.74) Triglycerides Level 83 mg/dL (0-150) Cholesterol Level 113 mg/dL (0-200) LDL Cholesterol, Calculated 63 mg/dL (0-100) VLDL Cholesterol, Calculated 17 mg/dL (0-40) Non-HDL Cholesterol Calculated 80 mg/dL (0-129) HDL Cholesterol 33 mg/dL (40-60) Cholesterol/HDL Ratio 3.4 Glucose (Fingerstick) 74 mg/dL (70-99) 71 mg/dL (70-99) Test 05/14/18 11:45 05/14/18 12:31 05/14/18 16:44 Erythrocyte Sedimentation Rate 86 (0-15) Uric Acid 4.2 mg/dL (3.5-7.2) C-Reactive Protein, Quantitative 14.7 mg/L (0-3.3) Glucose (Fingerstick) 110 mg/dL (70-99) 122 mg/dL (70-99) Laboratory Tests Test 05/14/18 07:31 05/14/18 11:44 05/14/18 11:45 05/14/18 12:31 Glucose (Fingerstick) 74 mg/dL (70-99) 71 mg/dL (70-99) 110 mg/dL (70-99) Erythrocyte Sedimentation Rate 86 (0-15) Uric Acid 4.2 mg/dL (3.5-7.2) C-Reactive Protein, Quantitative 14.7 mg/L (0-3.3) Test 05/14/18 16:44 Glucose (Fingerstick) 122 mg/dL (70-99) Medications Current Medications Diltiazem HCl (Cardizem) 15 mg 1X ONCE IVP Last administered on 05/13/18at 12: 02; Start 05/13/18 at 11:45; Stop 05/13/18 at 11:46; Status DC Diltiazem HCl 125 mg/Dextrose 125 ml @ 5 mls/hr 1X ONCE IV Last administered on 05/13/18at 12:06; Start 05/13/18 at 11:45; Stop 05/14/18 at 10:04; Status DC Ondansetron HCl (Zofran) 4 mg PRN Q8HRS PRN IV NAUSEA/VOMITING; Start at 12:45; Stop 05/14/18 at 12:44; Status DC Morphine Sulfate (Morphine Sulfate) 2 mg PRN Q2HR PRN IV PAIN SEVERE; Start at 12:45; Stop 05/14/18 at 12:44; Status DC Sodium Chloride 1,000 ml @ 75 mls/hr [id number] IV Last administered on at 12:32; Start 05/13/18 at 12:32; Stop 05/13/18 at 16:31; Status DC Digoxin (Lanoxin) 500 mcg 1X ONCE IV Last administered on 05/13/18at 14:27; Start 05/13/18 at 14:45; Stop 05/13/18 at 14:46; Status DC Apixaban (Eliquis) 5 mg BID PO Last administered on 05/14/18 20:24; Start at 15:30 Info (Anti-Coagulation Monitoring By Pharmacy) 1 each PRN DAILY PRN MC SEE COMMENTS Last administered on 05/14/18at 16:50; Start 05/13/18 at 18:15 Insulin Human Lispro (HumaLOG) 0-7 UNITS TIDWMEALS SQ ; Start 05/14/18 at 08:00 Dextrose (Dextrose 50%-Water Syringe) 12.5 gm PRN Q15MIN PRN IV SEE COMMENTS; Start 05/13/18 at 20:00 Aspirin (Ecotrin) 81 mg DAILY08 PO Last administered on 05/14/18 08:31; Start 05/14/18 at 08:00 Vitamin D (Vitamin D3) 1,000 unit DAILY PO Last administered on 05/14/18 08: 27; Start 05/14/18 at 09:00 Acetaminophen/ Hydrocodone Bitart (Lortab 5/325) 1 tab PRN Q6HRS PRN PO PAIN Last administered on 05/15/18 04:07; Start 05/13/18 at 20:00 Ascorbic Acid (Vitamin C) 1,000 mg DAILY PO Last administered on 05/14/18 08: 32; Start 05/14/18 at 09:00 Multivitamins (Thera M Plus) 1 tab DAILY PO Last administered on 05/14/18 08: 31; Start 05/14/18 at 09:00 Fish Oil (Fish Oil) 1,000 mg DAILY PO Last administered on 05/14/18at 08:32; Start 05/14/18 at 09:00 Ondansetron HCl (Zofran Odt) 8 mg PRN Q8HRS PRN PO NAUSEA/VOMITING; Start at 20:15 Oxycodone HCl (OxyCONTIN) 20 mg Q12HR PO Last administered on 05/14/18at 20:24 ; Start 05/13/18 at 21:00; Stop 05/14/18 at 20:44; Status DC Pantoprazole Sodium (Protonix) 40 mg DAILYAC PO Last administered on 08:32; Start 05/14/18 at 07:30 Atorvastatin Calcium (Lipitor) 5 mg QHS PO Last administered on 05/14/18at 20: 24; Start 05/13/18 at 21:00 Temazepam (Restoril) 15 mg QHS PO Last administered on 05/14/18at 20:24; Start 05/13/18 at 21:00 Sodium Chloride (Normal Saline Flush) 3 ml PRN DAILY PRN IV AFTER MEDS AND BLOOD DRAWS; Start 05/13/18 at 20:15 Ringer's Solution 1,000 ml @ 100 mls/hr Q10H IV Last administered on at 21:20; Start 05/13/18 at 20:08; Stop 05/14/18 at 09:45; Status DC Senna/Docusate Sodium (Senna Plus) 1 tab BID PO Last administered on at 20:24; Start 05/13/18 at 21:00 Lactulose (Lactulose) 20 gm PRN Q12HR PRN PO CONSTIPATION 1ST CHOICE; Start at 20:15 Diltiazem HCl (Cardizem 24hr Cd) 120 mg DAILY PO Last administered on at 10:15; Start 05/14/18 at 10:30 Diltiazem HCl (Cardizem 24hr Cd) 120 mg DAILY PO ; Start 05/15/18 at 09:00; Status UNV Morphine Sulfate (Morphine Sulfate) 4 mg PRN Q4HRS PRN IV MODERATE-SEVERE PAIN Last administered on 05/14/18at 15:01; Start 05/14/18 at 14:00; Stop 05/14/18 at 16:40; Status DC Ketorolac Tromethamine (Toradol 15mg Vial) 15 mg PRN Q6HRS PRN IV MILD PAIN Last administered on 05/15/18at 04:06; Start 05/14/18 at 16:30; Stop 05/19/18 at 16:29 Hydromorphone HCl (Dilaudid) 0.5 mg PRN Q4HRS PRN IVP MODERATE-SEVERE PAIN Last administered on 05/14/18at 23:07; Start 05/14/18 at 16:45 Oxycodone HCl (OxyCONTIN) 20 mg 1X ONCE PO Last administered on 05/14/18at 21: 00; Start 05/14/18 at 21:00; Stop 05/14/18 at 21:01; Status DC Oxycodone HCl (OxyCONTIN) 40 mg Q12HR PO ; Start 05/15/18 at 09:00 Active Scripts Active Reported Restoril (Temazepam) 15 Mg Capsule 1 Cap PO QHS Oxycontin (Oxycodone HCl) 20 Mg Tab.er.12h 40 Mg PO BID Zofran Odt (Ondansetron) 8 Mg Tab.rapdis 1 Tab PO Q8HRS [mushroom extract] 500 Mg PO HS Men's Multi-Vitamin (Multivitamin) 1 Each Tablet 1 Each PO DAILY Cinnamon (Cinnamon Bark) 500 Mg Capsule 500 Mg PO [address] 3 Fish Oil Softgel ([address]-3 Fatty Acids/Fish Oil) 1 Each Capsule. 1 Each PO DAILY Coenzyme Q10 (Ubidecarenone) 200 Mg Capsule 200 Mg PO Vitamin D3 (Cholecalciferol (Vitamin D3)) 1,000 Unit Tablet 1,000 Unit PO DAILY Vitamin C (Ascorbic Acid) 1,000 Mg Tablet 1,000 Mg PO DAILY Aspir-Low (Aspirin) 81 Mg Tablet. 81 Mg PO DAILY [place]uyler 5-325 Tablet (Acetaminophen/Hydrocodone Bitart) 1 Each Tablet 1 Tab PO PRN Q6HRS PRN Pravastatin Sodium 20 Mg Tablet 20 Mg PO 1/2TAB DAILY Protonix (Pantoprazole Sodium) 20 Mg Tablet. 20 Mg PO DAILY Metformin Hcl 1,000 Mg Tablet 1,000 Mg PO BIDWMEALS Vitals/I & O Vital Sign - Last 24 Hours 05/14/18 05/14/18 05/14/18 05/14/18 08:00 08:32 10:15 11:00 Temp 98.6 98.6 Pulse 90 83 Resp 16 16 B/P (MAP) 104/63 116/76 (89) Pulse Ox 97 O2 Delivery Room Air Room Air Room Air 05/14/18 05/14/18 05/14/18 05/14/18 12:32 12:55 15:00 15:01 Temp 100.1 100.1 Pulse 101 Resp 16 18 B/P (MAP) 127/80 (96) Pulse Ox 97 O2 Delivery Room Air Room Air Room Air 05/14/18 05/14/18 05/14/18 05/14/18 15:37 18:49 18:52 19:25 Temp 99.3 99.3 Resp 16 16 O2 Delivery Room Air Room Air Room Air 05/14/18 05/14/18 05/14/18 05/14/18 19:30 20:24 21:00 23:07 Temp 98.8 98.8 Pulse 102 Resp 18 20 20 B/P (MAP) 123/62 (82) Pulse Ox 96 96 O2 Delivery Room Air Room Air Room Air Room Air 05/14/18 05/14/18 05/15/18 05/15/18 23:14 23:37 00:24 01:00 Temp 99.5 99.5 Pulse 104 Resp 18 20 20 B/P (MAP) 133/69 (90) Pulse Ox 95 95 O2 Delivery Room Air Room Air Room Air Room Air 05/15/18 05/15/18 05/15/18 03:00 04:07 05:07 Temp 98.0 98.0 Pulse 101 Resp 18 20 20 B/P (MAP) 131/67 (88) Pulse Ox 94 O2 Delivery Room Air Room Air Room Air Intake and Output 05/14/18 05/14/18 05/15/18 15:00 23:00 07:00 Intake Total 1750 ml 1200 ml 2800 ml Output Total 600 ml 1050 ml 1350 ml Balance 1150 ml 150 ml 1450 ml BIANCA SOLORZANO MD May 15, 2018 07:17
[2018-05-15] MEDS: ASPIRIN ENTERIC COATED 81 MG TABLET.DR. PO SCH (08:00)
[2018-05-15] MEDS: INSULIN LISPRO 300 UNITS/3 ML INSULN.PEN. SQ SCH (08:00)
[2018-05-15] MEDS: PANTOPRAZOLE 40 MG TABLET.DR. PO SCH (08:04)
[2018-05-15] MEDS: APIXABAN 5 MG TABLET. PO SCH (08:37)
[2018-05-15] MEDS: CHOLECALCIFEROL (VITAMIN D3) 1,000 UNIT TABLET PO SCH (08:37)
[2018-05-15] MEDS: SENNOSIDES/DOCUSATE 8.6/50MG TABLET. PO SCH (08:37)
[2018-05-15] MEDS: MULTIVITAMIN with MINERAL TABLET. PO SCH (08:38)
[2018-05-15] MEDS: ASCORBIC ACID 500 MG TABLET PO SCH (08:39)
[2018-05-15] MEDS: OMEGA-3 FATTY ACIDS/FISH OIL 1,000 MG CAPSULE. PO SCH (08:41)
[2018-05-15] MEDS ORDERED: oxyCODONE ER 40 MG TAB.ER.12H PO SCH (09:00)
--- NOTE | 2018-05-15 09:02 | PDOC ---
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 ROS - rt knee pain better Objective Objective Vital Signs Date Time Temp Pulse Resp B/P (MAP) Pulse Ox O2 Delivery O2 Flow Rate FiO2 05/15/18 08:37 Room Air 05/15/18 07:01 98.9 93 16 104/65 (78) 95 98.9 Intake and Output 05/15/18 07:00 Intake Total 5750 ml Output Total 3000 ml Balance 2750 ml Intake Oral 4800 ml IV Total 950 ml Output Urine Total 3000 ml Physical Exam Heart: Normal S1, Normal S2 General: Alert, Oriented X3 Lungs: Clear to auscultation Neuro: Normal speech Psych/Mental Status: Mental status NL Assessment Assessment Problems Medical Problems: (1) Atrial fibrillation with RVR Status: Acute Imp/Plan: 1. 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 Defer chemo due to a.fib. Improving mets: CT chest 05/14/18: Irregular bilateral pulmonary masses and patchy infiltrates have predominantly regressed since 01/12/2018. Mediastinal adenopathy has also regressed. Small bilateral pleural effusions and a small pericardial effusion have increased slightly. f/u with me in 2 weeks 2. A.fib. I d/w cardiology. 3. Rt knee swelling - consult ortho. 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 There is full-thickness cartilage loss in all 3 knee compartments. Poor visualization of the medial and lateral menisci, likely related to prior meniscectomy and/or severe chronic degenerative tearing. Moderate size joint effusion with multiple intra-articular loose bodies. Nonvisualization of the anterior cruciate ligament, likely related to chronic tear. Probable chronic tear of the popliteus tendon Comment Review of Relevant I have reviewed the following items corry (where applicable) has been applied. Labs Laboratory Tests Test 05/13/18 11:45 05/14/18 04:30 05/14/18 07:31 05/14/18 11:44 White Blood Count 4.1 x10^3/uL (4.0-11.0) Red Blood Count 3.22 x10^6/uL (4.30-5.70) Hemoglobin 10.9 g/dL (13.0-17.5) Hematocrit 31.9 % (39.0-53.0) Mean Corpuscular Volume 99 fL (79-100) Mean Corpuscular Hemoglobin 34 pg (25-35) Mean Corpuscular Hemoglobin Concent 34 g/dL (31-37) Red Cell Distribution Width 20.7 % (11.5-14.5) Platelet Count 196 x10^3/uL (140-400) Neutrophils (%) (Auto) 67 % (31-73) Lymphocytes (%) (Auto) 7 % (24-48) Monocytes (%) (Auto) 21 % (0-9) Eosinophils (%) (Auto) 4 % (0-3) Basophils (%) (Auto) 1 % (0-3) Neutrophils # (Auto) 2.8 x10^3uL (1.8-7.7) Lymphocytes # (Auto) 0.3 x10^3/uL (1.0-4.8) Monocytes # (Auto) 0.9 x10^3/uL (0.0-1.1) Eosinophils # (Auto) 0.2 x10^3/uL (0.0-0.7) Basophils # (Auto) 0.0 x10^3/uL (0.0-0.2) Segmented Neutrophils % 77 % (35-66) Band Neutrophils % 1 % (0-9) Lymphocytes % 7 % (24-48) Monocytes % 12 % (0-10) Eosinophils % 2 % (0-5) Basophils % 1 % (0-3) Platelet Estimate Adequate (ADEQUATE) Anisocytosis Mod Prothrombin Time 14.2 SEC (11.7-14.0) Prothromb Time International Ratio 1.2 (0.8-1.1) Activated Partial Thromboplast Time 33 SEC (24-38) Sodium Level 144 mmol/L (136-145) Potassium Level 4.1 mmol/L (3.5-5.1) Chloride Level 107 mmol/L (98-107) Carbon Dioxide Level 25 mmol/L (21-32) Anion Gap 12 (6-14) Blood Urea Nitrogen 10 mg/dL (8-26) Creatinine 0.8 mg/dL (0.7-1.3) Estimated GFR (Cockcroft-Gault) 95.8 Glucose Level 84 mg/dL (70-99) Calcium Level 8.8 mg/dL (8.5-10.1) Total Bilirubin 0.3 mg/dL (0.2-1.0) Direct Bilirubin 0.1 mg/dL (0.0-0.2) Aspartate Amino Transf (AST/SGOT) 19 U/L (15-37) Alanine Aminotransferase (ALT/SGPT) 16 U/L (16-63) Alkaline Phosphatase 103 U/L (46-116) Troponin I Quantitative < 0.017 ng/mL (0.000-0.055) ID-Csw-Z-Type Natriuretic Peptide 662 pg/mL (0-124) Total Protein 6.6 g/dL (6.4-8.2) Albumin 2.9 g/dL (3.4-5.0) Lipase 72 U/L (73-393) Thyroid Stimulating Hormone (TSH) 0.987 uIU/mL (0.358-3.74) Triglycerides Level 83 mg/dL (0-150) Cholesterol Level 113 mg/dL (0-200) LDL Cholesterol, Calculated 63 mg/dL (0-100) VLDL Cholesterol, Calculated 17 mg/dL (0-40) Non-HDL Cholesterol Calculated 80 mg/dL (0-129) HDL Cholesterol 33 mg/dL (40-60) Cholesterol/HDL Ratio 3.4 Glucose (Fingerstick) 74 mg/dL (70-99) 71 mg/dL (70-99) Test 05/14/18 11:45 05/14/18 12:31 05/14/18 16:44 Erythrocyte Sedimentation Rate 86 (0-15) Uric Acid 4.2 mg/dL (3.5-7.2) C-Reactive Protein, Quantitative 14.7 mg/L (0-3.3) Glucose (Fingerstick) 110 mg/dL (70-99) 122 mg/dL (70-99) Laboratory Tests Test 05/14/18 11:44 05/14/18 11:45 05/14/18 12:31 05/14/18 16:44 Glucose (Fingerstick) 71 mg/dL (70-99) 110 mg/dL (70-99) 122 mg/dL (70-99) Erythrocyte Sedimentation Rate 86 (0-15) Uric Acid 4.2 mg/dL (3.5-7.2) C-Reactive Protein, Quantitative 14.7 mg/L (0-3.3) Medications Current Medications Diltiazem HCl (Cardizem) 15 mg 1X ONCE IVP Last administered on 05/13/18at 12: 02; Start 05/13/18 at 11:45; Stop 05/13/18 at 11:46; Status DC Diltiazem HCl 125 mg/Dextrose 125 ml @ 5 mls/hr 1X ONCE IV Last administered on 05/13/18at 12:06; Start 05/13/18 at 11:45; Stop 05/14/18 at 10:04; Status DC Ondansetron HCl (Zofran) 4 mg PRN Q8HRS PRN IV NAUSEA/VOMITING; Start at 12:45; Stop 05/14/18 at 12:44; Status DC Morphine Sulfate (Morphine Sulfate) 2 mg PRN Q2HR PRN IV PAIN SEVERE; Start at 12:45; Stop 05/14/18 at 12:44; Status DC Sodium Chloride 1,000 ml @ 75 mls/hr [id number] IV Last administered on at 12:32; Start 05/13/18 at 12:32; Stop 05/13/18 at 16:31; Status DC Digoxin (Lanoxin) 500 mcg 1X ONCE IV Last administered on 05/13/18at 14:27; Start 05/13/18 at 14:45; Stop 05/13/18 at 14:46; Status DC Apixaban (Eliquis) 5 mg BID PO Last administered on 05/15/18at 08:37; Start at 15:30 Info (Anti-Coagulation Monitoring By Pharmacy) 1 each PRN DAILY PRN MC SEE COMMENTS Last administered on 05/14/18at 16:50; Start 05/13/18 at 18:15 Insulin Human Lispro (HumaLOG) 0-7 UNITS TIDWMEALS SQ ; Start 05/14/18 at 08:00 Dextrose (Dextrose 50%-Water Syringe) 12.5 gm PRN Q15MIN PRN IV SEE COMMENTS; Start 05/13/18 at 20:00 Aspirin (Ecotrin) 81 mg DAILY08 PO Last administered on 05/14/18at 08:31; Start 05/14/18 at 08:00 Vitamin D (Vitamin D3) 1,000 unit DAILY PO Last administered on 05/15/18at 08: 37; Start 05/14/18 at 09:00 Acetaminophen/ Hydrocodone Bitart (Lortab 5/325) 1 tab PRN Q6HRS PRN PO PAIN Last administered on 05/15/18 04:07; Start 05/13/18 at 20:00 Ascorbic Acid (Vitamin C) 1,000 mg DAILY PO Last administered on 05/15/18 08: 39; Start 05/14/18 at 09:00 Multivitamins (Thera M Plus) 1 tab DAILY PO Last administered on 05/15/18 08: 38; Start 05/14/18 at 09:00 Fish Oil (Fish Oil) 1,000 mg DAILY PO Last administered on 05/14/18 08:32; Start 05/14/18 at 09:00 Ondansetron HCl (Zofran Odt) 8 mg PRN Q8HRS PRN PO NAUSEA/VOMITING; Start at 20:15 Oxycodone HCl (OxyCONTIN) 20 mg Q12HR PO Last administered on 05/14/18 20:24 ; Start 05/13/18 at 21:00; Stop 05/14/18 at 20:44; Status DC Pantoprazole Sodium (Protonix) 40 mg DAILYAC PO Last administered on 08:04; Start 05/14/18 at 07:30 Atorvastatin Calcium (Lipitor) 5 mg QHS PO Last administered on 05/14/18 20: 24; Start 05/13/18 at 21:00 Temazepam (Restoril) 15 mg QHS PO Last administered on 05/14/18 20:24; Start 05/13/18 at 21:00 Sodium Chloride (Normal Saline Flush) 3 ml PRN DAILY PRN IV AFTER MEDS AND BLOOD DRAWS; Start 05/13/18 at 20:15 Ringer's Solution 1,000 ml @ 100 mls/hr Q10H IV Last administered on at 21:20; Start 05/13/18 at 20:08; Stop 05/14/18 at 09:45; Status DC Senna/Docusate Sodium (Senna Plus) 1 tab BID PO Last administered on 08:37; Start 05/13/18 at 21:00 Lactulose (Lactulose) 20 gm PRN Q12HR PRN PO CONSTIPATION 1ST CHOICE; Start at 20:15 Diltiazem HCl (Cardizem 24hr Cd) 120 mg DAILY PO Last administered on at 10:15; Start 05/14/18 at 10:30 Diltiazem HCl (Cardizem 24hr Cd) 120 mg DAILY PO ; Start 05/15/18 at 09:00; Status UNV Morphine Sulfate (Morphine Sulfate) 4 mg PRN Q4HRS PRN IV MODERATE-SEVERE PAIN Last administered on 05/14/18at 15:01; Start 05/14/18 at 14:00; Stop 05/14/18 at 16:40; Status DC Ketorolac Tromethamine (Toradol 15mg Vial) 15 mg PRN Q6HRS PRN IV MILD PAIN Last administered on 05/15/18at 04:06; Start 05/14/18 at 16:30; Stop 05/19/18 at 16:29 Hydromorphone HCl (Dilaudid) 0.5 mg PRN Q4HRS PRN IVP MODERATE-SEVERE PAIN Last administered on 05/14/18at 23:07; Start 05/14/18 at 16:45 Oxycodone HCl (OxyCONTIN) 20 mg 1X ONCE PO Last administered on 05/14/18at 21: 00; Start 05/14/18 at 21:00; Stop 05/14/18 at 21:01; Status DC Oxycodone HCl (OxyCONTIN) 40 mg Q12HR PO Last administered on 05/15/18at 08:37 ; Start 05/15/18 at 09:00 Active Scripts Active Reported Restoril (Temazepam) 15 Mg Capsule 1 Cap PO QHS Oxycontin (Oxycodone HCl) 20 Mg Tab.er.12h 40 Mg PO BID Zofran Odt (Ondansetron) 8 Mg Tab.rapdis 1 Tab PO Q8HRS [mushroom extract] 500 Mg PO HS Men's Multi-Vitamin (Multivitamin) 1 Each Tablet 1 Each PO DAILY Cinnamon (Cinnamon Bark) 500 Mg Capsule 500 Mg PO 2 PO DAILY [place] 3 Fish Oil Softgel ([place]-3 Fatty Acids/Fish Oil) 1 Each Capsule.dr 1 Each PO DAILY Coenzyme Q10 (Ubidecarenone) 200 Mg Capsule 200 Mg PO Vitamin D3 (Cholecalciferol (Vitamin D3)) 1,000 Unit Tablet 1,000 Unit PO DAILY Vitamin C (Ascorbic Acid) 1,000 Mg Tablet 1,000 Mg PO DAILY Aspir-Low (Aspirin) 81 Mg Tablet.dr 81 Mg PO DAILY [place] 5-325 Tablet (Acetaminophen/Hydrocodone Bitart) 1 Each Tablet 1 Tab PO PRN Q6HRS PRN Pravastatin Sodium 20 Mg Tablet 20 Mg PO 1/2TAB DAILY Protonix (Pantoprazole Sodium) 20 Mg Tablet.dr 20 Mg PO DAILY Metformin Hcl 1,000 Mg Tablet 1,000 Mg PO BIDWMEALS Vitals/I & O Vital Sign - Last 24 Hours 05/14/18 05/14/18 05/14/18 05/14/18 10:15 11:00 12:32 12:55 Temp 98.6 98.6 Pulse 90 83 Resp 16 16 18 B/P (MAP) 104/63 116/76 (89) Pulse Ox 97 O2 Delivery Room Air Room Air 05/14/18 05/14/18 05/14/18 05/14/18 15:00 15:01 15:37 18:49 Temp 100.1 100.1 Pulse 101 Resp 18 18 16 16 B/P (MAP) 127/80 (96) Pulse Ox 97 O2 Delivery Room Air Room Air Room Air Room Air 05/14/18 05/14/18 05/14/18 05/14/18 18:52 19:25 19:30 20:24 Temp 99.3 98.8 99.3 98.8 Pulse 102 Resp 18 20 B/P (MAP) 123/62 (82) Pulse Ox 96 O2 Delivery Room Air Room Air Room Air 05/14/18 05/14/18 05/14/18 05/14/18 21:00 23:07 23:14 23:37 Temp 99.5 99.5 Pulse 104 Resp 20 18 20 B/P (MAP) 133/69 (90) Pulse Ox 96 95 O2 Delivery Room Air Room Air Room Air Room Air 05/15/18 05/15/18 05/15/18 05/15/18 00:24 01:00 03:00 04:07 Temp 98.0 98.0 Pulse 101 Resp 20 18 20 B/P (MAP) 131/67 (88) Pulse Ox 95 94 O2 Delivery Room Air Room Air Room Air Room Air 05/15/18 05/15/18 05/15/18 05:07 07:01 08:37 Temp 98.9 98.9 Pulse 93 Resp 20 16 B/P (MAP) 104/65 (78) Pulse Ox 95 O2 Delivery Room Air Room Air Room Air Intake and Output 05/14/18 05/14/18 05/15/18 15:00 23:00 07:00 Intake Total 1750 ml 1200 ml 2800 ml Output Total 600 ml 1050 ml 1350 ml Balance 1150 ml 150 ml 1450 ml GAURAV LIU MD May 15, 2018 09:02
[2018-05-15] MEDS ORDERED: PANT40GR PO (10:18)
[2018-05-15] MEDS ORDERED: PRED20TA PO (10:18)
[2018-05-15] MEDS ORDERED: DILT120C80 PO (10:18)
[2018-05-15] MEDS ORDERED: APIX5TAB PO (10:18)
[2018-05-15 11:00] VITALS: BP 143/63
[2018-05-15 11:01] VITALS: BP 143/63
--- NOTE | 2018-05-15 11:32 | PDOC ---
CÉSAR ASHBY BELLSTAND ATTENDANT 05/15/18 1132: CARDIO Progress Notes Date and Time Date of Service 05/15/2018 Time of Evaluation 1115 Subjective Subjective: No Chest Pain, No shortness of breath, No Palpitations Vitals Vitals Vital Signs Date Time Temp Pulse Resp B/P (MAP) Pulse Ox O2 Delivery O2 Flow Rate FiO2 05/15/18 11:01 92 143/63 05/15/18 08:37 Room Air 05/15/18 07:01 98.9 16 95 98.9 Weight Weight [ ] Input and Output Intake and Output Intake and Output 05/15/18 07:00 Intake Total 5750 ml Output Total 3000 ml Balance 2750 ml Intake Oral 4800 ml IV Total 950 ml Output Urine Total 3000 ml Laboratory Labs Laboratory Tests Test 05/14/18 11:44 05/14/18 11:45 05/14/18 12:31 05/14/18 16:44 Glucose (Fingerstick) 71 mg/dL (70-99) 110 mg/dL (70-99) 122 mg/dL (70-99) Erythrocyte Sedimentation Rate 86 (0-15) Uric Acid 4.2 mg/dL (3.5-7.2) C-Reactive Protein, Quantitative 14.7 mg/L (0-3.3) Physical Exam HEENT: Neck Supple W Full Motion Chest: Symmetric LUNGS: Clear to Auscultation Heart: S1S2, RRR (SR) Abdomen: Soft N/T Extremities: No Calf Tenderness Neurology: alert, oriented, follow commands Assessment Assessment 1. PAFIB RVR: initially with RVR, maintaining SR. 2. Bilateral pleural effusion with lung CA with mets to esophagus and bones 3. Small pericardial effusion: hemodynamically stable. EF and WM nml. 4. Chronic diastolic CHF: compensated 5. Anemia 6. HTN: BP at low end due to polyuria and opiods. 7. DM2/HLP 8. Recent partial esophagectomy and reconstruction surgery and radiation: in process of chemo 9. Polyuria: likely related to CA. Recommendations 1. May DC per cardiac perspective 2. Encouraged to push po fluids.Responding well with Cardizem CD 120 mg Eliquis for stroke prevention 3. Follow up in office in 4 weeks. WESLEY GALAN MD 05/15/18 1024: CARDIO Progress Notes Assessment Assessment Patient seen and examined. Agree with STITCHING MACHINE FEEDER OR OFFBEARER's assessment and plan. Maintaining sinus rhythm. Continue Cardizem and eliquis. Follow-up with our office in 4 weeks. CÉSAR ASHBY APRN May 15, 2018 11:32 WESLEY GALAN MD May 15, 2018 15:54
[2018-05-15] MEDS: ANTI-COAG MONITOR BY PHARMACY. MC PRN (14:24)
--- NOTE | 2018-05-15 14:35 | CONS ---
DATE OF CONSULTATION: 05/14/2018 REQUESTING PHYSICIAN: Fredrick Wilburn MD. REASON FOR CONSULTATION: Esophageal carcinoma on chemotherapy, now admitted with atrial fibrillation. HISTORY OF PRESENT ILLNESS: The patient is a 67-year-old gentleman who was diagnosed with stage 3 adenocarcinoma of the lower third of the esophagus in 01/2017. He received chemoradiation with carboplatin and Taxol from 03/18/2017 through 04/22/2017. 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 There was evidence of perineural invasion and 3 of the 12 lymph nodes were positive, but the margins were negative. He developed back pain for which he underwent an MRI of the lumbar spine on 01/08/2018, which revealed a marrow replacing lesion in the right pedicle and transverse process of L5, and a left sacral lesion with nerve encasement. PET scan on 01/29/2018 revealed jenna metastasis in the chest, mediastinal lymphadenopathy, multifocal mass-like areas of consolidation in the right lower lobe consistent with metastatic disease and there was also evidence of activity in the proximal left femur consistent with bone metastasis. He was started on palliative chemotherapy with FOLFOX on 02/18/2018. MMR was stable and HER2/tyrell was negative. PET scan on 04/09/2018 after cycle #4 revealed good response. He was admitted to [facility] on 05/13/2018 with atrial fibrillation with rapid ventricular rate. Cardiology was consulted and he was started on Eliquis. I was asked to see the patient for management of stage IV esophageal cancer on chemotherapy. PAST MEDICAL HISTORY: Diabetes mellitus, GERD, radiation therapy, hyperlipidemia, hypertension, miliary aneurysms of the retina. FAMILY HISTORY: Positive for diabetes, cancer, and COPD. SOCIAL HISTORY: He is a never smoker. No alcohol abuse. REVIEW OF SYSTEMS: A 12-point review of system was performed. Pertinent positives are mentioned in the history of present illness. Rest of the system review is negative. PHYSICAL EXAMINATION: GENERAL APPEARANCE: The patient is a 67-year-old gentleman who is in no acute cardiorespiratory distress. VITAL SIGNS: Blood pressure 127/80, temperature 100.1. HEENT: Head: Atraumatic, normocephalic. Eyes: No icterus. NECK: Supple. CHEST: Bilaterally symmetrical. No crepitations or rhonchi heard. HEART: S1, S2 normal. ABDOMEN: Soft, nontender. CENTRAL NERVOUS SYSTEM: No focal neurological deficits. LYMPHATICS: No lymphadenopathy. SKIN: No rashes. MUSCULOSKELETAL: He has evidence of significant pain and swelling in the right knee. There is no evidence of cellulitis or inflammation on examination, but it is tender to palpation. LABORATORY DATA: WBC 4.1, hemoglobin 10.9, platelet count 196. Creatinine 0.8, calcium 8.8, total bilirubin 0.3, direct bilirubin 0.1, AST 19, ALT 16, alkaline phosphatase 103. IMPRESSION AND PLAN: 1. Stage IV adenocarcinoma of the esophagus with evidence of bilateral pulmonary metastatic disease, mediastinal lymphadenopathy and bone metastasis. HER2/tyrell negative and MMR stable. He was started on palliative chemotherapy with FOLFOX on 02/18/2018. I will defer next cycle by at least 10 days, which will give him some time to recover from atrial fibrillation and also significant pain in the right knee and in addition, he has developed a fever today. I discussed in detail with the patient and he understands and agrees with the plan. He will follow up with me upon discharge. 2. Bone metastasis. He underwent palliative radiation therapy. He will follow up with Dr. Contreras. 3. Atrial fibrillation with rapid ventricular rate, improved. Appreciate Cardiology consultation. 4. Right knee pain and swelling. I ordered an MRI, which was done on 05/14/2018 which revealed moderate to severe tricompartmental degenerative arthrosis and chondromalacia. There is full thickness cartilage loss in all the three knee compartments. Moderate sized joint effusion with multiple intra-articular loose bodies noted. The patient reports that orthopedic consultation has already been requested by Dr. Wilburn. 5. Anemia due to malignancy, continue to monitor. GAURAV LIU MD DR: MAIN/katty JOB#: [id number] / [id number] TOMMY
--- NOTE | 2018-05-19 01:13 | PDOC3 ---
Discharge Summary Visit Information Date of Admission: May 13, 2018 Date of Discharge: May 15, 2018 Admitting Diagnosis: Atrial fibrillation with RVR Final Diagnosis Problems Medical Problems: (1) Atrial fibrillation with RVR Status: Acute Brief Hospital Course Allergies Allergies Coded Allergies Type Severity Reaction Last Updated Verified No Known Drug Allergies 02/11/18 No Brief Hospital Course Mr Chu is a 67 yo male w/ PMHx DM2, HTN, Esophageal cancer with mets who p/ w rapid heart rate in his oncologist's office at 170bpm, sent to the ED. Found in AFIB with RVR. Was initially diagnosed with esophageal CA in December of 2016 s/p surgery in May of 2017 now with mets to lungs and bone as of february 2018. Prior to treatment he underwent cardiac workup including EKG, echo, and stress test. Had brief episode of AFIB post-operatively and reports being discharged on a "pill" for a month, he thinks it was xarelto. Reports this medication was never refilled. Patient presently asymptomatic. Did have a period this morning while getting ready that his heart felt like it was beating fast and felt diaphoretic, but this subsided quickly at 930. He has noted this same "clammy" sensation a few times prior as well. Denies any dizziness, SOA, VO, orthopnea, or nausea/ vomiting. Noted to be in AFIB with RVR upon arrival. Cardizem bolus of 15mg and subsequent gtt was initiated. Was running at 10mg/hr, but had to be decreased to 5mg/hr due to BP in the low 80's. HR presently ranging from 130-160 on Cardizem at 5mg/hr. He is feeling well, but was triaged to ICU for his hypotension. On further ROS he has no GI or complaints but does c/o bone pain from bony mets on extended release oxycodone for this. Cardizem converted to oral. BP on the low side. Sinus rhythm. He c/o right knee pain and some swelling that are improved after a toradol injection. Uric acid 4 , CRP and ESR elevated. MRI reviewed with tricompartmental disease, effusion, and cartilage damage. A/P: Atrial fibrillation with RVR - rate controlled, started eliquis. Switched to 120mg cardizem. BP down. Will need cardiology f/u outpatient now ECHO - The left ventricular systolic function is normal and the ejection fraction is within normal range. The Ejection Fraction is 55-60%. Transmitral Doppler flow pattern is Grade II-pseudonormal filling dynamics. There is moderate left pleural effusion. There is a small circumferential pericardial effusion. There is normal LV segmental wall motion. Right knee pain and swelling - imaging reviewed. Patient would like to consider corticosteroid injection, I have advised Ortho may not do this while on eliquis , could go home with less than 3 days of anti-inflammatory - prednisone, understands the risks and need for PPI while taking MRI - 1. 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 There is full-thickness cartilage loss in all 3 knee compartments. 2. Poor visualization of the medial and lateral menisci, likely related to prior meniscectomy and/or severe chronic degenerative tearing. 3. Moderate size joint effusion with multiple intra-articular loose bodies. 4. Nonvisualization of the anterior cruciate ligament, likely related to chronic tear. 5. Probable chronic tear of the popliteus tendon Hypotension - secondary to diltiazem. triaged to ICU. Esophageal cancer - under treatment for mets. S/p esophagectomy Bone pain - secondary to mets, will cont home pain medications DM2 - will hold metformin, changed to sliding scale Diet - ADA PPX - eliquis Full code Can d/c home if able to ambulate, knee if improving Discharge Information Condition at Discharge: Improved Follow Up: Weeks (2) Disposition/Orders: D/C to Home Scheduled Apixaban (Eliquis) 5 Mg Tablet, 5 MG PO BID for 30 Days, #60 Ref 1 Prescribed by: BIANCA SOLORZANO MD on 05/15/18 1018 Ascorbic Acid (Vitamin C) 1,000 Mg Tablet, 1,000 MG PO DAILY, (Reported) Entered as Reported by: CHERELLE MASSEY on 02/06/18822 Last Action: Converted on 05/13/181953 by Darron Kay Cholecalciferol (Vitamin D3) (Vitamin D3) 1,000 Unit Tablet, 1,000 UNIT PO DAILY , (Reported) Entered as Reported by: CHERELLE MASSEY on 02/06/18822 Last Action: Continued on 05/13/181953 by Darron Kay Cinnamon Bark (Cinnamon) 500 Mg Capsule, 500 MG PO 2 po daily, (Reported) Entered as Reported by: CHERELLE MASSEY on 02/06/18822 Diltiazem Hcl (Diltiazem 24HR Cd) 120 Mg Cap.er.24h, 120 MG PO DAILY for 30 Days , #30 Ref 1 Prescribed by: BIANCA SOLORZANO MD on 05/15/18 1018 Metformin Hcl (Metformin Hcl) 1,000 Mg Tablet, 1,000 MG PO BIDWMEALS, (Reported) Entered as Reported by: CHERELLE MASSEY on 02/06/18822 Last Action: Reviewed on 05/13/181826 by VANDANA OSORIO Multivitamin (Men's Multi-Vitamin) 1 Each Tablet, 1 EACH PO DAILY, (Reported) Entered as Reported by: CHERELLE MASSEY on 02/06/18822 Last Action: Converted on 05/13/181953 by Darron Kay [place]-3 Fatty Acids/Fish Oil ([place] 3 Fish Oil Softgel) 1 Each Capsule.dr, 1 EACH PO DAILY, (Reported) Entered as Reported by: CHERELLE MASSEY on 02/06/18822 Last Action: Converted on 05/13/181953 by Darron Kay Ondansetron (Zofran Odt) 8 Mg Tab.rapdis, 1 TAB PO Q8HRS, #30 (Reported) Entered as Reported by: VANDANA OSORIO on 05/13/181827 Last Action: Converted on 05/13/181953 by Darron Kay Oxycodone Hcl (Oxycontin) 20 Mg Tab.er.12h, 40 MG PO BID for PAIN, (Reported) Entered as Reported by: VANDANA OSORIO on 05/13/181827 Last Action: Edited on 05/14/182027 by Trisha Herman Pantoprazole Sodium (Protonix) 40 Mg Granpkt.dr, 40 MG PO DAILY for 30 Days, # 30 Ref 1 Prescribed by: BIANCA SOLORZANO MD on 05/15/18 1018 Pravastatin Sodium (Pravastatin Sodium) 20 Mg Tablet, 20 MG PO 1/2tab daily, ( Reported) Entered as Reported by: CHERELLE MASSEY on 02/06/18822 Last Action: Converted on 05/13/181953 by Darron Kay Prednisone (Prednisone) 20 Mg Tablet, 1 TAB PO DAILY for 5 Days, #5 Prescribed by: BIANCA SOLORZANO MD on 05/15/18 1018 Temazepam (Restoril) 15 Mg Capsule, 1 CAP PO QHS, #30 Ref 1 (Reported) Entered as Reported by: VANDANA OSOIRO on 05/13/181827 Last Action: Converted on 05/13/181953 by Darron Kay [mushroom extract] , 500 MG PO HS, (Reported) Entered as Reported by: CHERELLE MASSEY on 02/06/18830 Scheduled PRN Hydrocodone/Apap 5-325 ([place] 5-325 Tablet) 1 Each Tablet, 1 TAB PO PRN Q6HRS PRN for PAIN, (Reported) Entered as Reported by: CHERELLE MASSEY on 02/06/18822 Last Action: Continued on 05/13/181953 by Darron Kay Miscellaneous Medications Ubidecarenone (Coenzyme Q10) 200 Mg Capsule, 200 MG PO, (Reported) Entered as Reported by: CHERELLE MASSEY on 02/06/18822 Discontinued Medications Aspirin (Aspir-Low) 81 Mg Tablet.dr, 81 MG PO DAILY, (Reported) Entered as Reported by: CHERELLE MASSEY on 02/06/18822 Last Action: Continued on 05/13/181953 by Darron Kay Pantoprazole Sodium (Protonix) 20 Mg Tablet., 20 MG PO DAILY, (Reported) Discontinued Reason: Prescription changed Entered as Reported by: CHERELLE MASSEY on 02/06/18822 Last Action: Converted on 05/13/181953 by BIANCA Herrera MD May 19, 2018 01:13
== END 2018-05-15 15:22 | disposition home or self-care (01) | DRG 309 ==
LOC: ER 11:21 → ED HOLD 14:51 → 1 WEST ICU 18:06 → CVICU 21:51
PROVIDERS: ADMIT Internal Medicine; ATTEND Internal Medicine
DX: I48.0 Paroxysmal atrial fibrillation (principal); C15.9 Malignant neoplasm of esophagus, unspecified; I50.32 Chronic diastolic (congestive) heart failure; I31.3 Pericardial effusion (noninflammatory); C78.02 Secondary malignant neoplasm of left lung; C78.01 Secondary malignant neoplasm of right lung; C79.51 Secondary malignant neoplasm of bone; G89.3 Neoplasm related pain (acute) (chronic); Z96.659 Presence of unspecified artificial knee joint; I95.9 Hypotension, unspecified; D63.0 Anemia in neoplastic disease; E11.42 Type 2 diabetes mellitus with diabetic polyneuropathy; E78.5 Hyperlipidemia, unspecified; M25.561 Pain in right knee; K21.9 Gastro-esophageal reflux disease without esophagitis; M19.90 Unspecified osteoarthritis, unspecified site; I11.0 Hypertensive heart disease with heart failure; Z82.5 Family history of asthma and other chronic lower respiratory diseases; Z83.3 Family history of diabetes mellitus; Z85.01 Personal history of malignant neoplasm of esophagus; Z90.49 Acquired absence of other specified parts of digestive tract; Z82.49 Family history of ischemic heart disease and other diseases of the circulatory system; Z79.899 Other long term (current) drug therapy
CPT/HCPCS: 36415; 71045; 71250; 73562; 73721; 80048; 80061; 80076; 82962; 83690; 83880; 84443; 84484; 84550; 85007; 85025; 85610; 85651; 85730; 86140; 93005; 93306; 96365; 96366; 96376; J1160; J1170; J1815; J1885; J2270; J3490; J7030; J7120; 99285-25

== ENCOUNTER → 2018-06-23 | Day surgery (SDC) | payer MEDICARE, BC ==
[~2018-06-23] MED LIST changes: +APIX5TAB PO; +CALC-157 PO; +DIGO125T PO; +DILT120C80 PO; +FURO-69 PO; +HYDR-2769 PO; +HYDR-3164 PO; -HYDR-971 PO; +HYDROmorphone 2 MG/ML VIAL IV PRN; +IV RINGERS,LACTATED 1000ML 1,000 ML IV SCH; +LIDOCAINE 1% PF 2 ML VIAL. ID PRN; +MORPHINE SULFATE 2 MG/ML VIAL. IV PRN; +ONDA8TAB12 PO; +ONDANSETRON PF 4 MG/2 ML VIAL. IV PRN; +OXYC20TA34 PO; +PANT40GR PO; +PRED20TA PO; +PROCHLORPERAZINE 10 MG/2 ML VIAL. IV PRN; +PROPOFOL 0 ML IV ONE; +TEMA15CA6 PO; +fentaNYL PF VIAL 100 MCG/2 ML VIAL IV PRN
--- NOTE | 2018-06-23 14:32 | EKG ---
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
[2018-06-23 14:36] VITALS: BP 120/80
== END | disposition home or self-care (01) ==
LOC: SURG 13:54
PROVIDERS: ATTEND Internal Medicine Cardiovascular Disease
DX: I48.91 Unspecified atrial fibrillation (principal); Z53.8 Procedure and treatment not carried out for other reasons; Z79.899 Other long term (current) drug therapy
CPT/HCPCS: 93005; J2704